=== PATIENT | female | born 1965 | race Caucasian/White ===

== ENCOUNTER 2022-02-23 13:45 | Emergency (ER) | payer OTHER, SELFPAY ==
--- NOTE | ~2022-02-23 | CT_ITS ---
EXAMINATION: CT CERVICAL SPINE WITHOUT CONTRAST CLINICAL INFORMATION: Pain. No trauma. Pain radiating down left upper extremity COMPARISON: None TECHNIQUE: Axial images obtained through cervical spine. Coronal and sagittal reformatted images are performed at CT scanner This CT examination was performed using dose optimization techniques as appropriate, variously including the following: *Automated exposure control *Adjustment of mA and/or kV according to patient size (this includes techniques or standardized protocols for targeted exams where dose is matched to indication/reason for exam; i.e. extremities or head) *Use of iterative reconstruction technique DLP: 454 mGy-cm FINDINGS: Status post anterior fusion C4-C5, C5-C6. Hardware intact. No fracture. No subluxation. No bone destruction. There is degenerative spondylosis of cervical spine. Mild disc height narrowing with anterior endplate spurs at C3-C4. Moderate to marked disc height narrowing and gentle endplate spurring at C6-C7. No foramina are open bilaterally. The facet joints are normal. No evidence of central canal stenosis or focal disc protrusion. CT/CT cervical spine wo IV con IMPRESSION: 1. No acute abnormality. 2. Status post anterior fusion C4-C6. 3. Degenerative spondylosis of cervical spine. Fleischner guidelines were followed.
[2022-02-23 13:56] VITALS: BP 147/94; PULSE 79; RESP 18; TEMP 36.6; O2SAT 99; BMI 27.8
--- OUTSIDE RECORDS SUMMARY | 2022-02-23 14:57 | XMS_ITS | Continuity of Care Document ---
:[address] [facility] re Address [address] [place] [address]- Care Team Providers Name Role Phone Chandra Barry MD Primary Care Physician [place] [facility] [place] 10/07/19 - 11/06/19 [facility] [address] [place] [address] [facility] Attending Physician: Chago Pandya Admitting Physician: Chago Pandya Referring Physician: AdmtrChago Allergies, Adverse Reactions, Alerts Substance Reaction Severity Status Zocor unknown Active Lipitor elevared lft's Active Adhesive Bandage kin peels and itchiness Active paper tape works well Latex skin irritation, itchiness Activ e Other Environmental Allergy TB testing material- site was baseba ll Active size and itchy statins muscle stiffness, potential liver issues Active oxyCODONE Itchy Active Immunizations Given and Recorded Vaccine Date Status Refusal Reason influenza virus vaccine, inactivated1 03/26/06 Given tetanus-diphtheria toxoids (Td) 04/23/02 Given 1Admin Note: 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 VIS GIVEN, NO EGG ALLERGY Medications amlodipine 5 mg oral tablet 1 tablet = 5 mg, By Mouth, Daily, 0 Refills, Maintenance, 10/14/14 13:34:07 Start Date: 10/14/14 Status: Orderedanastrozole 1 mg oral tablet 1 tablet = 1 mg, By Mouth, Daily, # 90 tablet, 3 Refills, Maintenance, 08/16/19 11:18:00 EDT, Tablet, [facility] #[id number], 154.94, cm, 08/03/19 14:35:00 EDT, Height, 62, kg, 08/03/19 14:35:00 EDT, Dry Weight Start Date: 08/16/19 Status: Orderedcalcium carbonate 600 mg oral tablet 1 tablet = 600 mg, By Mouth, Daily, # 60 tablet, 0 Refills, Maintenance, 09/15/19 12:26:00 EDT, Tablet Start Date: 09/15/19 Status: OrderedColace sodium 100 mg oral capsule 100 mg, 1, capsule, By Mouth, 2 times a day, PRN, # 14 capsule, Refills 0, Tot. Refills 0, Maintenance, for constipation, 07/20/19 15:19:00 EDT, Print Requisition Start Date: 07/20/19 Stop Date: 07/27/19 Status: OrderedLORazepam 1 mg oral tablet 1 tablet = 1 mg, By Mouth, 2 times a day, PRN as needed for anxiety, 0 Refills, Maintenance, 09/15/19 12:21:00 EDT, Tablet Start Date: 09/15/19 Status: Orderedmagnesium oxide 400 mg oral tablet 1 tablet = 400 mg, By Mouth, Daily, # 10 tablet, 0 Refills, Maintenance, 09/15/19 12:23:00 EDT, Tablet Start Date: 09/15/19 Stop Date: 09/25/19 Status: OrderedPARoxetine 30 mg oral tablet 1 tablet = 30 mg, By Mouth, Daily, # 90 tablet, 0 Refills, Maintenance, 09/15/19 12:22:00 EDT, Tablet Start Date: 09/15/19 Status: OrderedPravastatin = 20 mg, By Mouth, Daily at bedtime, 0 Refills, Maintenance, 07/14/19 8:39:00 EDT Start Date: 07/14/19 Status: OrderedProbiotic Formula 1 capsule, By Mouth, Daily, 0 Refills, Maintenance, 09/15/19 12:26:00 EDT Start Date: 09/15/19 Status: OrderedVitamin D3 1000 intl units oral capsule 1 capsule = 1,000 International_Units, By Mouth, Daily, # 100 capsule, 0 Refills, Maintenance, 09/15/19 12:26:00 EDT, Capsule Start Date: 09/15/19 Status: Ordered Problem List Condition Effective Dates Status Health Status Informant Anxiety disorder(Confirmed) Active 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
--- OUTSIDE RECORDS SUMMARY | 2022-02-23 14:57 | XMS_ITS | Continuity of Care Document ---
:1965 Author Organization [facility] Address [address] [place] [address]- Care Team Providers Name Role Phone Chandra Barry MD Primary Care Physician [place] [facility] [place] 01/30/21 [facility] [address] [address]- Discharge Disposition: A-D/C Home Attending Physician: Gladys Chapman MD Admitting Physician: Gladys Chapman MD Referring Physician: Chandra Barry MD Allergies, Adverse Reactions, Alerts Substance Reaction Severity [...] tetanus-diphtheria toxoids (Td) 04/23/02 Given 1Admin Note: 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 VIS GIVEN, NO EGG ALLERGY Medications amlodipine 5 mg oral tablet 1 tablet = 5 mg, By Mouth, Daily, 0 Refills, Maintenance, 10/14/14 13:34:07 Start Date: 10/14/14 Status: OrderedDiflucan 150 mg oral tablet 1 tablet = 150 mg, By Mouth, Once, # 1 tablet, 0 Refills, Soft Stop, 01/20/20 16:35:00 EDT, Tablet, [facility] #[id number], 156, cm, 01/11/20 15:14:00 EDT, Height, 64.6, kg, 01/11/20 15:14:00 EDT,Dry Weight Start Date: 01/20/20 Status: Orderedexemestane 25 mg oral tablet 1 tablet, By Mouth, Daily, # 90 tablet, 0 Refills, Maintenance, 09/14/20 15:29:00 EDT, [facility] #[id number], 156, cm, 09/14/20 14:22:00 EDT, Height, 67.2, kg, 09/14/20 14:22:00 EDT, Dry Weight Start Date: 09/14/20 Status: Orderedexemestane 25 mg oral tablet See Instructions, TAKE 1 TABLET BY MOUTH DAILY, # 90 tablet, 3 Refills, 12/27/20 16:43:00 EDT, [facility] #[id number], 156, cm, 11/30/20 14:11:00 EDT, Height, 68.7, kg, 11/30/20 14:11:00 EDT, Dry Weight Start Date: 12/27/20 Status: OrderedLORazepam 1 mg oral tablet 1 tablet = 1 mg, By Mouth, 2 times a day, PRN as needed for anxiety, 0 Refills, Maintenance, 09/15/19 12:21:00 EDT, Tablet Start Date: 09/15/19 Status: OrderedPARoxetine 30 mg oral tablet 1 [...] 09/15/19 12:26:00 EDT Start Date: 09/15/19 Status: Ordered Problem List Condition Effective Dates Status Health Status Informant Anxiety disorder(Confirmed) Active 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 Hypercholesterolemia(Confirmed) Active PMS - Premenstrual syndrome(Confirmed) Active Smoker(Confirmed) Active Vital Signs Most recent to oldest [Reference Range]: 1 Height 156 cm (11/30/20 2:11 PM) Weight 68.7 kg (11/30/20 2:11 PM) Oxygen Saturation [94-100 %] 97 % (11/30/20 2:11 PM) Pulse Rate [55-90 bpm] 80 bpm (11/30/20 2:11 PM) Body Mass Index [18.5-24.99] 28.23 *H* (11/30/20 2:11 PM) Blood Pressure [90-138/55-84 mm Hg] 132/71 mm Hg (11/30/20 2:11 PM) Temperature [96.8-100.4 DegF] 97.1 DegF (11/30/20 2:11 PM) Blood pressure sites Arm, left (11/30/20 2:11 PM) Temperature Route Temporal (11/30/20 2:11 PM) Dry Weight 68.7 kg (11/30/20 2:11 PM) Weight Obtained Via Standing scale (11/30/20 2:11 PM) Dry Weight Obtained Via Standing scale (11/30/20 2:11 PM) Social History Social History Type Response Smoking Status Current every day smoker entered on: 10/25/14 Sex
--- OUTSIDE RECORDS SUMMARY | 2022-02-23 14:57 | XMS_ITS | Continuity of Care Document ---
:1965 Author Organization [facility] Address [address] [place] [id number]- Care Team Providers Name Role Phone Chandra Barry MD Primary Care Physician [place] [facility] [place] 07/19/20 - 08/25/[facility] [address] [place] [id number] Attending Physician: Clover Haley MD Admitting Physician: Clover Haley MD Referring Physician: Chandra Barry MD Allergies, Adverse Reactions, Alerts Substance Reaction Severity Status Zocor unknown Active Lipitor elevared lft's Active Adhesive Bandage kin peels and itchiness Active paper tape works well Latex skin irritation, itchiness Activ e Other Environmental Allergy TB testing material- site was baseba Active size and itchy statins muscle stiffness, potential liver issues Active oxyCODONE Itchy Active Immunizations Given and Recorded Vaccine Date Status Refusal Reason influenza virus vaccine, inactivated1 03/26/06 Given tetanus-diphtheria toxoids (Td) 04/23/02 Given 1Admin Note: 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 VIS GIVEN, NO EGG ALLERGY Medications amlodipine 5 mg oral tablet 1 tablet = 5 mg, By Mouth, Daily, 0 Refills, Maintenance, 10/14/14 13:34:07 Start Date: 10/14/14 Status: Orderedcalcium carbonate 600 mg oral tablet [...] Start Date: 07/20/19 Stop Date: 07/27/19 Status: OrderedDiflucan 150 mg oral tablet 1 tablet = 150 mg, By Mouth, Once, # 1 tablet, 0 Refills, Soft Stop, 01/20/20 16:35:00 EDT, Tablet, [facility] #[id number], 156, cm, 01/11/20 15:14:00 EDT, Height, 64.6, kg, 01/11/20 15:14:00 EDT,Dry Weight Start Date: 01/20/20 Status: OrderedLORazepam 1 mg oral tablet 1 [...] Start Date: 09/15/19 Stop Date: 09/25/19 Status: OrderedMobic 7.5 mg oral tablet 1 tablet = 7.5 mg, By Mouth, Every 12 hours, # 30 tablet, 0 Refills, Maintenance, 03/20/20 17:10:00 EST, Tablet, [facility] #[id number], 156, cm, 03/20/20 16:47:00 EST, Height, 65.6, kg, 03/20/20 16:47:00 EST, Dry Weight Start Date: 03/20/20 Status: OrderedMobic 7.5 mg oral tablet 1 tablet = 7.5 mg, By Mouth, 2 times a day, # 60 tablet, 0 Refills, Maintenance, 04/14/20 10:56:00 EST, Tablet, [facility] #[id number], Partial fill upon patient request if the prescription is fora schedule II opioid drug., 156, cm, 03/20/20 16:... Start Date: 04/14/20 Status: OrderedPARoxetine 30 mg oral tablet 1 [...] 09/15/19 12:26:00 EDT Start Date: 09/15/19 Status: Orderedtamoxifen 20 mg oral tablet 1 tablet = 20 mg, By Mouth, Daily, # 30 tablet, 5 Refills, Maintenance, 08/11/20 16:38:00 EDT, Tablet, [facility] #[id number], Partial fill upon patient request if the prescription is for a schedule II opioid drug., 156, cm, 06/01/20 14:55:00 EST... 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
--- OUTSIDE RECORDS SUMMARY | 2022-02-23 14:57 | XMS_ITS | Continuity of Care Document ---
:1965 Author Organization [facility] Address [address] [place] [address]- Care Team Providers Name Role Phone Chandra Barry MD Primary Care Physician En[place] [facility] [place](s): 07/21/19 - 07/31/19 [facility] [address] [address] [facility] Attending Physician: Chago Pandya Admitting Physician: AdmChago woodard Referring Physician: AdmtrChago Allergies, Adverse Reactions, Alerts Substance Reaction Severity Status Zocor unknown Active Lipitor elevared lft's Active Adhesive Bandage kin peels and itchiness Active paper tape works well Latex skin irritation, itchiness Activ e Other Environmental Allergy TB testing material- site was baseba ll Active size and itchy Percocet 5/325 Itchy Active statins muscle stiffness, potential liver issues Active oxyCODONE Itchy Active Immunizations Given and Recorded Vaccine Date Status Refusal Reason influenza virus vaccine, inactivated1 03/26/06 Given tetanus-diphtheria toxoids (Td) 04/23/02 Given 1Admin Note: 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 Refills 0, Maintenance, for constipation, 07/20/19 15:19:00 EDT, Print Requisition Start Date: 07/20/19 Stop Date: 07/27/19 Status: OrderedLorazepam = 0.5 mg, 2 times a day, PRN as needed for anxiety, 0 Refills, Maintenance, 07/16/19 16:16:00 EDT Start Date: 07/16/19 Status: OrderedMobic 7.5 mg oral tablet 1 tablet = 7.5 mg, By Mouth, Daily, # 30 tablet, 0 Refills, Maintenance, 07/29/19 16:55:00 EDT, Tablet, [facility] #[id number], 154.94, cm, 07/29/19 14:46:00 EDT, Height, 62.27, kg, 07/16/19 16:59:00 EDT, Dry Weight Start Date: 07/29/19 Status: OrderedParoxetine = 20 mg, By Mouth, Daily in AM, 0 Refills, Maintenance, 07/14/19 8:40:00 EDT Start Date: 07/14/19 Status: OrderedPravastatin = 20 mg, By Mouth, Daily at bedtime, 0 Refills, Maintenance, 07/14/19 8:39:00 EDT Start Date: 07/14/19 Status: Ordered Problem List Condition Effective Dates Status Health Status Informant Anxiety disorder(Confirmed) Active 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
--- OUTSIDE RECORDS SUMMARY | 2022-02-23 14:57 | XMS_ITS | Continuity of Care Document ---
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 VIS GIVEN, NO EGG ALLERGY Medications amlodipine 5 mg oral tablet 1 tablet = 5 mg, By Mouth, Daily, 0 Refills, Maintenance, 10/14/14 13:34:07 Start Date: 10/14/14 Status: OrderedDiflucan 150 mg oral tablet 1 tablet = 150 mg, By Mouth, Once, # 1 tablet, 0 Refills, Soft Stop, 01/20/20 16:35:00 EDT, Tablet, [facility] #[id number], 156, cm, 01/11/20 15:14:00 EDT, Height, 64.6, kg, 01/11/20 15:14:00 EDT,Dry Weight Start Date: 01/20/20 Status: Orderedexemestane 25 mg oral tablet 1 tablet, By Mouth, Daily, # 90 tablet, 0 Refills, Maintenance, 09/14/20 15:29:00 EDT, [facility] #[id number], 156, cm, 09/14/20 14:22:00 EDT, Height, 67.2, kg, 09/14/20 14:22:00 EDT, Dry Weight Start Date: 09/14/20 Status: Orderedexemestane 25 mg oral tablet See Instructions, TAKE 1 TABLET BY MOUTH DAILY, # 90 tablet, 3 Refills, 12/27/20 16:43:00 EDT, [facility] #[id number], 156, cm, 11/30/20 14:11:00 EDT, Height, 68.7, [...] Status Health Status Informant Anxiety disorder(Confirmed) Active 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
--- OUTSIDE RECORDS SUMMARY | 2022-02-23 14:57 | XMS_ITS | Continuity of Care Document ---
:1965 Author Organization [facility] Address [address], [address] [place] [address]- Care Team Providers Name Role Phone Jhonny SAGE, Chandra Rico Primary Care Physician Encounter 03/26/21 - 05/19/21 [facility] [address], [address] [place] [address]- Attending Physician: Oleksandr Sheriff MD Admitting Physician: Oleksandr Sheriff MD Referring Physician: Oleksandr Sheriff MD Allergies, Adverse Reactions, Alerts Substance Reaction Severity Status Zocor unknown Active oxyCODONE Itchy Active Lipitor elevared lft's Active Adhesive Bandage kin peels and itchiness Active paper tape works well Latex skin irritation, itchiness Activ e Other Environmental Allergy TB testing material- site was baseba ll Active size and itchy statins muscle stiffness, potential liver issues Active Immunizations Given and Recorded Vaccine Date Status Refusal Reason influenza virus vaccine, inactivated1 03/26/06 Given tetanus-diphtheria toxoids (Td) 04/23/02 Given 1Admin Note: 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 VIS GIVEN, NO EGG ALLERGY Medications amlodipine 5 mg oral tablet 1 tablet = 5 mg, By Mouth, Daily, 0 Refills, Maintenance, 10/14/14 13:34:07 Start Date: 10/14/14 Status: OrderedDiflucan 150 mg oral tablet 1 tablet = 150 mg, By Mouth, Once, # 1 tablet, 0 Refills, Soft Stop, 01/20/20 16:35:00 EDT, Tablet, [facility] #[id number], 156, cm, 01/11/20 15:14:00 EDT, Height, 64.6, kg, 01/11/20 15:14:00 EDT,Dry Weight Start Date: 01/20/20 Status: Orderedexemestane 25 mg oral tablet 1 tablet, By Mouth, Daily, # 90 tablet, 0 Refills, Maintenance, 09/14/20 15:29:00 EDT, [facility] #[id number], 156, cm, 09/14/20 14:22:00 EDT, Height, 67.2, kg, 09/14/20 14:22:00 EDT, Dry Weight Start Date: 09/14/20 Status: Orderedexemestane 25 mg oral tablet See Instructions, TAKE 1 TABLET BY MOUTH DAILY, # 90 tablet, 3 Refills, 12/27/20 16:43:00 EDT, [facility] #[id number], 156, cm, 11/30/20 14:11:00 EDT, Height, 68.7, [...] Status Health Status Informant Anxiety disorder(Confirmed) Active 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
--- OUTSIDE RECORDS SUMMARY | 2022-02-23 14:57 | XMS_ITS | Continuity of Care Document ---
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 VIS GIVEN, NO EGG ALLERGY Medications amlodipine 5 mg oral tablet 1 tablet = 5 mg, By Mouth, Daily, 0 Refills, Maintenance, 10/14/14 13:34:07 Start Date: 10/14/14 Status: OrderedDiflucan 150 mg oral tablet 1 tablet = 150 mg, By Mouth, Once, # 1 tablet, 0 Refills, Soft Stop, 01/20/20 16:35:00 EDT, Tablet, [facility] #[id number], 156, cm, 01/11/20 15:14:00 EDT, Height, 64.6, kg, 01/11/20 15:14:00 EDT,Dry Weight Start Date: 01/20/20 Status: Orderedexemestane 25 mg oral tablet 1 tablet, By Mouth, Daily, # 90 tablet, 0 Refills, Maintenance, 09/14/20 15:29:00 EDT, [facility] #[id number], 156, cm, 09/14/20 14:22:00 EDT, Height, 67.2, kg, 09/14/20 14:22:00 EDT, Dry Weight Start Date: 09/14/20 Status: Orderedexemestane 25 mg oral tablet See Instructions, TAKE 1 TABLET BY MOUTH DAILY, # 90 tablet, 3 Refills, 12/27/20 16:43:00 EDT, [facility] #[id number], 156, cm, 11/30/20 14:11:00 EDT, Height, 68.7, [...] Status Health Status Informant Anxiety disorder(Confirmed) Active 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
--- OUTSIDE RECORDS SUMMARY | 2022-02-23 14:57 | XMS_ITS | Continuity of Care Document ---
:1965 Author Organization [facility] Address [address], [address] [place] [address]- Care Team Providers Name Role Phone Jhonny SAGE, Chandra Rico Primary Care Physician Encounter 04/25/21 - 05/02/21 [facility] [address], [address] [place] [address]- Attending Physician: Oleksandr Sheriff MD Admitting Physician: Oleksandr Sheriff MD Referring Physician: Oleksandr Sheriff MD Allergies, Adverse Reactions, Alerts Substance Reaction Severity Status Zocor unknown Active Adhesive Bandage kin peels and itchiness Active paper tape works well Other Environmental Allergy TB testing material- site was baseba ll Active size and itchy oxyCODONE Itchy Active Lipitor elevared lft's Active Latex skin irritation, itchiness Activ e statins muscle stiffness, potential liver issues Active Immunizations Given and Recorded Vaccine Date Status Refusal Reason influenza virus vaccine, inactivated1 03/26/06 Given tetanus-diphtheria toxoids (Td) 04/23/02 Given 1Admin Note: 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 VIS GIVEN, NO EGG ALLERGY Medications amlodipine 5 mg oral tablet 1 tablet = 5 mg, By Mouth, Daily, 0 Refills, Maintenance, 10/14/14 13:34:07 Start Date: 10/14/14 Status: OrderedDiflucan 150 mg oral tablet 1 tablet = 150 mg, By Mouth, Once, # 1 tablet, 0 Refills, Soft Stop, 01/20/20 16:35:00 EDT, Tablet, [facility][id number], 156, cm, 01/11/20 15:14:00 EDT, Height, 64.6, kg, 01/11/20 15:14:00 EDT,Dry Weight Start Date: 01/20/20 Status: Orderedexemestane 25 mg oral tablet 1 tablet, By Mouth, Daily, # 90 tablet, 0 Refills, Maintenance, 09/14/20 15:29:00 EDT, [facility] #[id number], 156, cm, 09/14/20 14:22:00 EDT, Height, 67.2, kg, 09/14/20 14:22:00 EDT, Dry Weight Start Date: 09/14/20 Status: Orderedexemestane 25 mg oral tablet See Instructions, TAKE 1 TABLET BY MOUTH DAILY, # 90 tablet, 3 Refills, 12/27/20 16:43:00 EDT, [facility] #[id number], 156, cm, 11/30/20 14:11:00 EDT, Height, 68.7, [...] Status Health Status Informant Anxiety disorder(Confirmed) Active 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
--- OUTSIDE RECORDS SUMMARY | 2022-02-23 14:57 | XMS_ITS | Continuity of Care Document ---
:1965 Author Organization [facility] [place] [address], [address] [place] [address]- Care Team Providers Name Role Phone Jhonny SAGE, Chandra Rico Primary Care Physician Encounter 08/30/21 - 09/06/21 [facility] [address], [address] [place] [address]- Attending Physician: Gladys Chapman MD Admitting Physician: Gladys Chapman MD Referring Physician: Gladys Chapman MD Allergies, Adverse Reactions, Alerts Substance Reaction Severity Status Zocor unknown Active Adhesive Bandage kin peels and itchiness Active paper tape works well oxyCODONE Itchy Active Lipitor elevared lft's Active Latex skin irritation, itchiness Activ e Other Environmental Allergy TB testing material- site was baseba ll Active size and itchy statins muscle stiffness, potential liver issues Active Immunizations Given and Recorded Vaccine Date Status Refusal Reason influenza virus vaccine, inactivated1 03/26/06 Given tetanus-diphtheria toxoids (Td) 04/23/02 Given 1Admin Note: 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: SANOFI 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 VIS GIVEN, NO EGG ALLERGY Medications amlodipine 5 mg oral tablet 1 tablet = 5 mg, By Mouth, Daily, 0 Refills, Maintenance, 10/14/14 13:34:07 Start Date: 10/14/14 Status: OrderedDiflucan 150 mg oral tablet 1 tablet = 150 mg, By Mouth, Once, # 1 tablet, 0 Refills, Soft Stop, 01/20/20 16:35:00 EDT, Tablet, [facility] #[id number], 156, cm, 01/11/20 15:14:00 EDT, Height, 64.6, kg, 01/11/20 15:14:00 EDT,Dry Weight Start Date: 01/20/20 Status: Orderedexemestane 25 mg oral tablet 1 tablet, By Mouth, Daily, # 90 tablet, 0 Refills, Maintenance, 09/14/20 15:29:00 EDT, [facility] #[id number], 156, cm, 09/14/20 14:22:00 EDT, Height, 67.2, kg, 09/14/20 14:22:00 EDT, Dry Weight Start Date: 09/14/20 Status: Orderedexemestane 25 mg oral tablet See Instructions, TAKE 1 TABLET BY MOUTH DAILY, # 90 tablet, 3 Refills, 12/27/20 16:43:00 EDT, [facility] #[id number], 156, cm, 11/30/20 14:11:00 EDT, Height, 68.7, [...] Status Health Status Informant Anxiety disorder(Confirmed) Active 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
--- OUTSIDE RECORDS SUMMARY | 2022-02-23 14:57 | XMS_ITS | Continuity of Care Document ---
:1965 Author Organization [facility] Address [address] [place] [address]- Care Team Providers Name Role Phone Chandra Barry MD Primary Care Physician [place] [facility] [place](s): 05/29/20 - 06/28/20 [facility] [address] [address]- Allergies, Adverse Reactions, Alerts Substance Reaction Severity Status Zocor unknown Active Lipitor elevared lft's Active Adhesive Bandage kin peels and itchiness Active paper tape works well Latex skin irritation, itchiness Activ e Other Environmental Allergy TB testing material- site was [facility] Active size and itchy statins muscle stiffness, potential liver issues Active oxyCODONE Itchy Active Immunizations Given and Recorded Vaccine Date Status Refusal Reason influenza virus vaccine, inactivated1 03/26/06 Given tetanus-diphtheria toxoids (Td) 04/23/02 Given 1Admin Note: 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: SANOFI PASTEUR VIS GIVEN, NO EGG ALLERGY [...] Refills, Soft Stop, 01/20/20 16:35:00 EDT, Tablet, [facility] #[id number], 156, cm, 01/11/20 15:14:00 EDT, Height, 64.6, [...] 0 Refills, Maintenance, 03/20/20 17:10:00 EST, Tablet, [facility] #[id number], 156, cm, 03/20/20 16:47:00 EST, Height, 65.6, kg, 03/20/20 16:47:00 EST, Dry Weight Start Date: 03/20/20 Status: OrderedMobic 7.5 mg oral tablet 1 tablet = 7.5 mg, By Mouth, 2 times a day, # 60 tablet, 0 Refills, Maintenance, 04/14/20 10:56:00 EST, Tablet, [facility] #[id number], Partial fill upon patient request if the [...] mg, By Mouth, Daily, # 30 tablet, 1 Refills, Maintenance, 06/22/20 14:20:00 EST, Tablet, [facility] #[id number], Partial fill upon patient request if the prescription is for a schedule II opioid drug., 156, cm, 06/01/20 14:55:00 EST... 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
--- OUTSIDE RECORDS SUMMARY | 2022-02-23 14:57 | XMS_ITS | Continuity of Care Document ---
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 #[id number], 156, cm, 01/11/20 15:14:00 EDT, Height, 64.6, kg, 01/11/20 15:14:00 EDT,Dry Weight Start Date: 01/20/20 Status: Orderedexemestane 25 mg oral tablet 1 tablet, By Mouth, Daily, # 90 tablet, 0 Refills, Maintenance, 09/14/20 15:29:00 EDT, [facility] #[id number], 156, cm, 09/14/20 14:22:00 EDT, Height, 67.2, kg, 09/14/20 14:22:00 EDT, Dry Weight Start Date: 09/14/20 Status: Orderedexemestane 25 mg oral tablet See Instructions, TAKE 1 TABLET BY MOUTH DAILY, # 90 tablet, 3 Refills, 12/27/20 16:43:00 EDT, [facility] #[id number], 156, cm, 11/30/20 14:11:00 EDT, Height, 68.7, [...] Status Health Status Informant Anxiety disorder(Confirmed) Active 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
--- OUTSIDE RECORDS SUMMARY | 2022-02-23 14:57 | XMS_ITS | Continuity of Care Document ---
:1965 Author Organization [facility] Address [address] [place] [address]- Care Team Providers Name Role Phone Chandra Barry MD Primary Care Physician Encounter 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: SANOFI PASTEUR VIS GIVEN, NO EGG ALLERGY Medications amlodipine 5 mg oral tablet 1 tablet = 5 mg, By Mouth, Daily, 0 Refills, Maintenance, 10/14/14 13:34:07 Start Date: 10/14/14 Status: OrderedDiflucan 150 mg oral tablet 1 tablet = 150 mg, By Mouth, Once, # 1 tablet, 0 Refills, Soft Stop, 01/20/20 16:35:00 EDT, Tablet, [facility] #[id number], 156, cm, 01/11/20 15:14:00 EDT, Height, 64.6, kg, 01/11/20 15:14:00 EDT,Dry Weight Start Date: 01/20/20 Status: Orderedexemestane 25 mg oral tablet 1 tablet, By Mouth, Daily, # 90 tablet, 0 Refills, Maintenance, 09/14/20 15:29:00 EDT, [facility] #[id number], 156, cm, 09/14/20 14:22:00 EDT, Height, 67.2, kg, 09/14/20 14:22:00 EDT, Dry Weight Start Date: 09/14/20 Status: Orderedexemestane 25 mg oral tablet See Instructions, TAKE 1 TABLET BY MOUTH DAILY, # 90 tablet, 3 Refills, 12/27/20 16:43:00 EDT, [facility] #[id number], 156, cm, 11/30/20 14:11:00 EDT, Height, 68.7, [...] Status Health Status Informant Anxiety disorder(Confirmed) Active 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 Hypercholesterolemia(Confirmed) Active PMS - Premenstrual syndrome(Confirmed) Active Smoker(Confirmed) Active Vital Signs Most recent to oldest [Reference Range]: 1 Height 156 cm (03/05/21 3:31 PM) Weight 66.1 kg (03/05/21 3:31 PM) Pulse Rate [55-90 bpm] 74 bpm (03/05/21 3:31 PM) Body Mass Index [18.5-24.99] 27.16 *H* (03/05/21 3:31 PM) Blood Pressure [90-138/55-84 mm Hg] 146/72 mm Hg *H* (03/05/21 3:31 PM) Temperature [96.8-100.4 DegF] 97.1 DegF (03/05/21 3:31 PM) Blood pressure sites Arm, left (03/05/21 3:31 PM) Temperature Route Temporal (03/05/21 3:31 PM) Dry Weight 66.1 kg (03/05/21 3:31 PM) Weight Obtained Via Standing scale (03/05/21 3:31 PM) Dry Weight Obtained Via Standing scale (03/05/21 3:31 PM) Social History Social History Type Response Smoking Status Current every day smoker entered on: 10/25/14 Sex
--- OUTSIDE RECORDS SUMMARY | 2022-02-23 14:57 | XMS_ITS | Continuity of Care Document ---
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: SANOFI PASTEUR VIS GIVEN, NO EGG ALLERGY Medications amlodipine 5 mg oral tablet 1 tablet = 5 mg, By Mouth, Daily, 0 Refills, Maintenance, 10/14/14 13:34:07 Start Date: 10/14/14 Status: Orderedanastrozole 1 mg oral tablet 1 tablet = 1 mg, By Mouth, Daily, # 90 tablet, 3 Refills, Maintenance, 08/16/19 11:18:00 EDT, Tablet, [facility] #[id number], 154.94, cm, 08/03/19 14:35:00 EDT, Height, 62, [...] Status Health Status Informant Anxiety disorder(Confirmed) Active 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
--- OUTSIDE RECORDS SUMMARY | 2022-02-23 14:57 | XMS_ITS | Continuity of Care Document ---
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: SANOFI PASTEUR VIS GIVEN, NO EGG ALLERGY [...] Refills, Soft Stop, 01/20/20 16:35:00 EDT, Tablet, [facility] #[id number], 156, cm, 01/11/20 15:14:00 EDT, Height, 64.6, [...] 0 Refills, Maintenance, 03/20/20 17:10:00 EST, Tablet, [facility] #[id number], 156, cm, 03/20/20 16:47:00 EST, Height, 65.6, kg, 03/20/20 16:47:00 EST, Dry Weight Start Date: 03/20/20 Status: OrderedMobic 7.5 mg oral tablet 1 tablet = 7.5 mg, By Mouth, 2 times a day, # 60 tablet, 0 Refills, Maintenance, 04/14/20 10:56:00 EST, Tablet, [facility] #[id number], Partial fill upon patient request if the [...] 1 Refills, Maintenance, 06/22/20 14:20:00 EST, Tablet, [facility] #[id number], Partial fill upon patient request if the [...] Status Health Status Informant Anxiety disorder(Confirmed) Active 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
--- OUTSIDE RECORDS SUMMARY | 2022-02-23 14:57 | XMS_ITS | Continuity of Care Document ---
:1965 Author Organization [facility] [place] [address], [address] [place] [address]- Care Team Providers Name Role Phone Chandra Barry MD Primary Care Physician Encounter 06/23/19 - 06/30/19 [facility] [address], [address] [place] [address]- [facility] Attending Physician: Chandra Barry MD Admitting Physician: Chandra Barry MD Referring Physician: Chandra Barry MD Allergies, Adverse Reactions, Alerts Substance Reaction Severity Status Zocor Active Lipitor elevared lft's Active Adhesive Bandage Active Percocet 5/325 Itchy Active oxyCODONE Itchy Active Immunizations Given and Recorded Vaccine Date Status Refusal Reason influenza virus vaccine, inactivated1 03/26/06 Given tetanus-diphtheria toxoids (Td) 04/23/02 Given 1Admin Note: 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 VIS GIVEN, NO EGG ALLERGY Medications amlodipine 5 mg oral tablet 1 tablet = 5 mg, By Mouth, Daily, 0 Refills, Maintenance, 10/14/14 13:34:07 Start Date: 10/14/14 Status: OrderedCymbalta 30 mg oral enteric coated capsule 30, mg, 1, capsule, By Mouth, Daily at bedtime, 30 capsule, 6, 0, 6, 08/21/06 14:26:52, Print KEYONA Number, [id number], Constant Indicator Start Date: 08/21/06 Stop Date: 03/19/07 Status: OrderedFetzima 40 mg oral capsule, extended release 1 capsule = 40 mg, By Mouth, Daily, 0 Refills, Maintenance, 10/14/14 13:35:43 Start Date: 10/14/14 Status: Orderedibuprofen 800 mg oral tablet 800, mg, 1, tablet, By Mouth, 3 times a day, 30, tablet, 0, 0, 01/07/08 11:22:52, Print KEYONA Number, [id number], [id number], Constant Indicator Start Date: 01/07/08 Stop Date: 01/17/08 Status: Orderedmeclizine 25 mg oral tablet 1 tablet = 25 mg, By Mouth, 3 to 4 times a day, PRN dizziness, # 20 tablet, 0 Refills, Maintenance, 02/17/15 16:31:49, 1 tablet By Mouth 3 to 4 times a day,PRN:dizziness Start Date: 02/17/15 Status: Orderedoxybutynin 5 mg oral tablet 1 tablet = 5 mg, By Mouth, Daily, # 30 tablet, 0 Refills, Maintenance, 10/14/14 13:33:13, Tablet Start Date: 10/14/14 Status: Orderedtramadol 50 mg oral tablet = 50 mg, By Mouth, Every 6 hours, PRN Pain , Moderate, 0 Refills, Maintenance, 10/26/14 20:20:19, Tablet Start Date: 10/26/14 Status: OrderedZetia 10 mg oral tablet 1 tablet = 10 mg, By Mouth, Daily at bedtime, # 30 tablet, 0 Refills, Maintenance, 10/14/14 13:34:43, Tablet Start Date: 10/14/14 Status: Ordered Problem List Condition Effective Dates Status Health Status Informant Anxiety disorder(Confirmed) Active 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
--- OUTSIDE RECORDS SUMMARY | 2022-02-23 14:57 | XMS_ITS | Continuity of Care Document ---
:1965 Author Organization [facility] Address [address] [place] [address]- Care Team Providers Name Role Phone Chandra Barry MD Primary Care Physician Encounter [facility] [place] Date(s): 09/14/20 - 10/14/20 [facility] [address] [place] [address]- Attending Physician: Chago Pandya Admitting Physician: AdmtrChago Referring Physician: Admtr, Ar8 Allergies, Adverse Reactions, Alerts Substance Reaction Severity Status Zocor unknown Active Lipitor elevared lft's Active Adhesive Bandage kin peels and itchiness Active paper tape works well Other Environmental Allergy TB testing material- site was baseba ll Active size and itchy statins muscle stiffness, potential liver issues Active oxyCODONE Itchy Active Latex skin irritation, itchiness Activ e Immunizations Given and Recorded Vaccine Date Status Refusal Reason influenza virus vaccine, inactivated1 03/26/06 Given tetanus-diphtheria toxoids (Td) 04/23/02 Given 1Admin Note: 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 VIS GIVEN, NO EGG ALLERGY Medications amlodipine 5 mg oral tablet 1 tablet = 5 mg, By Mouth, Daily, 0 Refills, Maintenance, 10/14/14 13:34:07 Start Date: 10/14/14 Status: OrderedDiflucan 150 mg oral tablet 1 tablet = 150 mg, By Mouth, Once, # 1 tablet, 0 Refills, Soft Stop, 01/20/20 16:35:00 EDT, Tablet, [facility] #[id number], 156, cm, 01/11/20 15:14:00 EDT, Height, 64.6, kg, 01/11/20 15:14:00 EDT,Dry Weight Start Date: 01/20/20 Status: Orderedexemestane 25 mg oral tablet 1 tablet, By Mouth, Daily, # 90 tablet, 0 Refills, Maintenance, 09/14/20 15:29:00 EDT, [facility][id number], 156, cm, 09/14/20 14:22:00 EDT, Height, 67.2, kg, 09/14/20 14:22:00 EDT, Dry Weight Start Date: 09/14/20 Status: OrderedLORazepam 1 mg oral tablet 1 [...] Status Health Status Informant Anxiety disorder(Confirmed) Active 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
--- OUTSIDE RECORDS SUMMARY | 2022-02-23 14:57 | XMS_ITS | Continuity of Care Document ---
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: SANOFI PASTEUR VIS GIVEN, NO EGG ALLERGY Medications amlodipine 5 mg oral tablet 1 tablet = 5 mg, By Mouth, Daily, 0 Refills, Maintenance, 10/14/14 13:34:07 Start Date: 10/14/14 Status: OrderedDiflucan 150 mg oral tablet 1 tablet = 150 mg, By Mouth, Once, # 1 tablet, 0 Refills, Soft Stop, 01/20/20 16:35:00 EDT, Tablet, [facility] #[id number], 156, cm, 01/11/20 15:14:00 EDT, Height, 64.6, kg, 01/11/20 15:14:00 EDT,Dry Weight Start Date: 01/20/20 Status: Orderedexemestane 25 mg oral tablet 1 tablet, By Mouth, Daily, # 90 tablet, 0 Refills, Maintenance, 09/14/20 15:29:00 EDT, [facility] #[id number], 156, cm, 09/14/20 14:22:00 EDT, Height, 67.2, kg, 09/14/20 14:22:00 EDT, Dry Weight Start Date: 09/14/20 Status: Orderedexemestane 25 mg oral tablet See Instructions, TAKE 1 TABLET BY MOUTH DAILY, # 90 tablet, 3 Refills, 12/27/20 16:43:00 EDT, [facility] #[id number], 156, cm, 11/30/20 14:11:00 EDT, Height, 68.7, [...] Status Health Status Informant Anxiety disorder(Confirmed) Active 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
--- OUTSIDE RECORDS SUMMARY | 2022-02-23 14:57 | XMS_ITS | Continuity of Care Document ---
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 VIS GIVEN, NO EGG ALLERGY Medications amlodipine 5 mg oral tablet 1 tablet = 5 mg, By Mouth, Daily, 0 Refills, Maintenance, 10/14/14 13:34:07 Start Date: 10/14/14 Status: OrderedDiflucan 150 mg oral tablet 1 tablet = 150 mg, By Mouth, Once, # 1 tablet, 0 Refills, Soft Stop, 01/20/20 16:35:00 EDT, Tablet, [facility] #[id number], 156, cm, 01/11/20 15:14:00 EDT, Height, 64.6, kg, 01/11/20 15:14:00 EDT,Dry Weight Start Date: 01/20/20 Status: Orderedexemestane 25 mg oral tablet 1 tablet, By Mouth, Daily, # 90 tablet, 0 Refills, Maintenance, 09/14/20 15:29:00 EDT, [facility] #[id number], 156, cm, 09/14/20 14:22:00 EDT, Height, 67.2, kg, 09/14/20 14:22:00 EDT, Dry Weight Start Date: 09/14/20 Status: Orderedexemestane 25 mg oral tablet See Instructions, TAKE 1 TABLET BY MOUTH DAILY, # 90 tablet, 3 Refills, 12/27/20 16:43:00 EDT, [facility] #[id number], 156, cm, 11/30/20 14:11:00 EDT, Height, 68.7, [...] Status Health Status Informant Anxiety disorder(Confirmed) Active 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
--- OUTSIDE RECORDS SUMMARY | 2022-02-23 14:57 | XMS_ITS | Continuity of Care Document ---
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 Partial fill upon patient request i... 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 Hypercholesterolemia Confirmed Active PMS - Premenstrual Confirmed Active syndrome Smoker Confirmed Active Vital Signs Most recent to oldest [Reference Range]: 1 Height 156 cm (11/28/21 2:55 PM) Weight 65.8 kg (11/28/21 2:55 PM) Pulse Rate [55-90 bpm] 85 bpm (11/28/21 2:55 PM) Body Mass Index [18.5-24.99] 27.04 *H* (11/28/21 2:55 PM) Blood Pressure [90-138/55-84 mm Hg] 153/85 mm Hg *H* (11/28/21 2:55 PM) Blood pressure sites Arm, right (11/28/21 2:55 PM) Dry Weight 65.8 kg (11/28/21 2:55 PM) Weight Obtained Via Standing scale (11/28/21 2:55 PM) Dry Weight Obtained Via Standing scale (11/28/21 2:55 PM) Social History Social History Type Response Smoking Status Current every day smoker entered on: 10/25/14 Sex Patient Care team information PersonnelName: Chandra Barry MD Address: Address: [address] [place] [address], [address]
--- OUTSIDE RECORDS SUMMARY | 2022-02-23 14:57 | XMS_ITS | Continuity of Care Document ---
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 MANAGER: SANOFI PASTEUR VIS GIVEN, NO EGG [...] Refills, Soft Stop, 01/20/20 16:35:00 EDT, Tablet, [facility] #[id number], 156, cm, 01/11/20 15:14:00 EDT, Height, 64.6, kg, 01/11/20 15:14:00 EDT,Dry Weight Start Date: 01/20/20 Status: Orderedletrozole 2.5 mg oral tablet 1 tablet = 2.5 mg, By Mouth, Daily, # 90 tablet, 0 Refills, Maintenance, 03/03/20 12:35:00 EST, Tablet, [facility] #[id number], 156, cm, 01/11/20 15:14:00 EDT, Height, 64.6, kg, 01/11/20 15:14:00 EDT, Dry Weight Start Date: 03/03/20 Status: OrderedLORazepam 1 mg oral tablet 1 [...] 0 Refills, Maintenance, 03/20/20 17:10:00 EST, Tablet, [facility] #[id number], 156, cm, 03/20/20 16:47:00 EST, Height, 65.6, kg, 03/20/20 16:47:00 EST, Dry Weight Start Date: 03/20/20 Status: OrderedMobic 7.5 mg oral tablet 1 tablet = 7.5 mg, By Mouth, 2 times a day, # 60 tablet, 0 Refills, Maintenance, 04/14/20 10:56:00 EST, Tablet, [facility] #[id number], Partial fill upon patient request if the [...] Status Health Status Informant Anxiety disorder(Confirmed) Active 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
--- OUTSIDE RECORDS SUMMARY | 2022-02-23 14:57 | XMS_ITS | Continuity of Care Document ---
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 PASTEUR VIS GIVEN, NO EGG ALLERGY Medications amlodipine 5 mg oral tablet 1 tablet = 5 mg, By Mouth, Daily, 0 Refills, Maintenance, 10/14/14 13:34:07 Start Date: 10/14/14 Status: Orderedanastrozole 1 mg oral tablet 1 tablet = 1 mg, By Mouth, Daily, # 90 tablet, 3 Refills, Maintenance, 08/16/19 11:18:00 EDT, Tablet, [facility] #[id number], 154.94, cm, 08/03/19 14:35:00 EDT, Height, 62, [...] Status Health Status Informant Anxiety disorder(Confirmed) Active 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
--- OUTSIDE RECORDS SUMMARY | 2022-02-23 14:57 | XMS_ITS | Continuity of Care Document ---
:1965 Author Organization [facility] Address [address] [place] [address]- Care Team Providers Name Role Phone Chandra Barry MD Primary Care Physician [facility]counter [facility] Date(s): 01/12/20 - 09/10/[address] [address] Attending Physician: Rosa Wilkinson MD Admitting Physician: [...] tetanus-diphtheria toxoids (Td) 04/23/02 Given 1Admin Note: WELDER TECH: SANOFI PASTEUR VIS GIVEN, NO EGG ALLERGY [...] Refills, Soft Stop, 01/20/20 16:35:00 EDT, Tablet, [facility] #[id number], 156, cm, 01/11/20 15:14:00 EDT, Height, 64.6, [...] 0 Refills, Maintenance, 03/20/20 17:10:00 EST, Tablet, [facility] #[id number], 156, cm, 03/20/20 16:47:00 EST, Height, 65.6, kg, 03/20/20 16:47:00 EST, Dry Weight Start Date: 03/20/20 Status: OrderedMobic 7.5 mg oral tablet 1 tablet = 7.5 mg, By Mouth, 2 times a day, # 60 tablet, 0 Refills, Maintenance, 04/14/20 10:56:00 EST, Tablet, [facility] #[id number], Partial fill upon patient request if the [...] 5 Refills, Maintenance, 08/11/20 16:38:00 EDT, Tablet, [facility] #[id number], Partial fill upon patient request if the [...] Status Health Status Informant Anxiety disorder(Confirmed) Active 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
--- OUTSIDE RECORDS SUMMARY | 2022-02-23 14:57 | XMS_ITS | Continuity of Care Document ---
:1965 Author Organization [facility] Address [address] 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 LENS GRINDER: SANOFI PASTEUR VIS GIVEN, NO EGG ALLERGY Medications acetaminophen-hydrocodone 300 mg-5 mg oral tablet 1 tablet, By Mouth, Every 6 hours, PRN as needed for pain, for 3 days, # 10 tablet, 0 Refills, Acute07/23/19 15:25:00 EDT, 07/20/19 15:25:00 EDT, Tablet, Partial fill upon patient request Start Date: 07/20/19 Stop Date: 07/23/19 Status: Orderedamlodipine 5 mg oral tablet 1 tablet = 5 mg, By Mouth, Daily, 0 Refills, Maintenance, 10/14/14 13:34:07 Start Date: 6/19/15 Status: OrderedColace sodium 100 mg oral capsule [...] 07/16/19 16:16:00 EDT Start Date: 07/16/19 Status: OrderedoxyCODONE 5 mg oral tablet 5 mg, 1, tablet, By Mouth, Every 6 hours, PRN, # 10 tablet, Refills 0, Tot. Refills 0, Acute 07/27/19 17:10:00 EDT, as needed for pain, 07/20/19 17:09:00 EDT, Route to Pharmacy Electronically, [facility][id number], Partial fill upon patient req... 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
--- OUTSIDE RECORDS SUMMARY | 2022-02-23 14:57 | XMS_ITS | Continuity of Care Document ---
:1965 Author Organization [facility] Address [address] [place] [address]- Care Team Providers Name Role Phone Chandra Barry MD Primary Care Physician Encounter [facility] Date(s): 07/14/19 - 08/18/[address] [address]- [facility] Attending Physician: Cris Bonds DO Allergies, Adverse Reactions, Alerts Substance Reaction Severity [...] tetanus-diphtheria toxoids (Td) 04/23/02 Given 1Admin Note: POLLUTION CONTROL ENGINEER: SANOFI PASTEUR VIS GIVEN, NO EGG ALLERGY Medications amlodipine 5 mg oral tablet 1 tablet = 5 mg, By Mouth, Daily, 0 Refills, Maintenance, 10/14/14 13:34:07 Start Date: 10/14/14 Status: Orderedanastrozole 1 mg oral tablet 1 tablet = 1 mg, By Mouth, Daily, # 90 tablet, 3 Refills, Maintenance, 08/16/19 11:18:00 EDT, Tablet, [facility] #[id number], 154.94, cm, 08/03/19 14:35:00 EDT, Height, 62, kg, 08/03/19 14:35:00 EDT, Dry Weight Start Date: 08/16/19 Status: OrderedColace sodium 100 mg oral capsule [...] 0 Refills, Maintenance, 07/29/19 16:55:00 EDT, Tablet, [facility] #[id number], 154.94, cm, 07/29/19 14:46:00 EDT, Height, 62.27, [...] Status Health Status Informant Anxiety disorder(Confirmed) Active 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
--- OUTSIDE RECORDS SUMMARY | 2022-02-23 14:57 | XMS_ITS | Continuity of Care Document ---
:1965 Author Organization [facility] Address [address] [place] [address]- Care Team Providers Name Role Phone Chandra Barry MD Primary Care Physician Encounter [facility] Date(s): 08/11/19 - 11/03/19 [facility] [address] [place] [address] Attending Physician: Cris Bonds DO Admitting Physician: [...] tetanus-diphtheria toxoids (Td) 04/23/02 Given 1Admin Note: PRODUCTION QUALITY ANALYST: SANOFI PASTEUR VIS GIVEN, NO EGG ALLERGY Medications amlodipine 5 mg oral tablet 1 tablet = 5 mg, By Mouth, Daily, 0 Refills, Maintenance, 10/14/14 13:34:07 Start Date: 10/14/14 Status: Orderedanastrozole 1 mg oral tablet 1 tablet = 1 mg, By Mouth, Daily, # 90 tablet, 3 Refills, Maintenance, 08/16/19 11:18:00 EDT, Tablet, [facility] #[id number], 154.94, cm, 08/03/19 14:35:00 EDT, Height, 62, [...] Status Health Status Informant Anxiety disorder(Confirmed) Active 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
--- OUTSIDE RECORDS SUMMARY | 2022-02-23 14:57 | XMS_ITS | Continuity of Care Document ---
:1965 Author Organization [facility] Address [address] [place] [address]- Care Team Providers Name Role Phone Chandra Barry MD Primary Care Physician Encounter [facility] Date(s): 03/05/21 - 04/04/21 [facility] [address] [address] Allergies, Adverse Reactions, Alerts Substance Reaction Severity Status Zocor unknown Active Other Environmental Allergy TB testing material- site was baseba ll Active size and itchy oxyCODONE Itchy Active Lipitor elevared lft's Active Adhesive Bandage kin peels and itchiness Active paper tape works well Latex skin irritation, itchiness Activ e statins muscle stiffness, potential liver issues Active Immunizations Given and Recorded Vaccine Date Status Refusal Reason influenza virus vaccine, inactivated1 03/26/06 Given tetanus-diphtheria toxoids (Td) 04/23/02 Given 1Admin Note: 411 DIRECTORY ASSISTANCE OPERATOR: SANOFI PASTEUR VIS GIVEN, NO EGG ALLERGY Medications amlodipine 5 mg oral tablet 1 tablet = 5 mg, By Mouth, Daily, 0 Refills, Maintenance, 10/14/14 13:34:07 Start Date: 10/14/14 Status: OrderedDiflucan 150 mg oral tablet 1 tablet = 150 mg, By Mouth, Once, # 1 tablet, 0 Refills, Soft Stop, 01/20/20 16:35:00 EDT, Tablet, [facility] #[id number], 156, cm, 01/11/20 15:14:00 EDT, Height, 64.6, kg, 01/11/20 15:14:00 EDT,Dry Weight Start Date: 01/20/20 Status: Orderedexemestane 25 mg oral tablet 1 tablet, By Mouth, Daily, # 90 tablet, 0 Refills, Maintenance, 09/14/20 15:29:00 EDT, [facility] #[id number], 156, cm, 09/14/20 14:22:00 EDT, Height, 67.2, kg, 09/14/20 14:22:00 EDT, Dry Weight Start Date: 09/14/20 Status: Orderedexemestane 25 mg oral tablet See Instructions, TAKE 1 TABLET BY MOUTH DAILY, # 90 tablet, 3 Refills, 12/27/20 16:43:00 EDT, [facility] #[id number], 156, cm, 11/30/20 14:11:00 EDT, Height, 68.7, [...] Status Health Status Informant Anxiety disorder(Confirmed) Active 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
--- OUTSIDE RECORDS SUMMARY | 2022-02-23 14:57 | XMS_ITS | Continuity of Care Document ---
:1965 Author Organization [facility] Address [address] [facility], [address] [place] [address]- Care Team Providers Name Role Phone Jhonny SAGE, Chandra Rico Primary Care Physician Encounter 08/13/21 - 08/20/21 [facility] [address], [address] [place] [address]- Attending Physician: Gladys Chapman MD Admitting Physician: [...] tetanus-diphtheria toxoids (Td) 04/23/02 Given 1Admin Note: HOME THEATER EXPERIENCE EXPERT: SANOFI PASTEUR VIS GIVEN, NO EGG ALLERGY Medications amlodipine 5 mg oral tablet 1 tablet = 5 mg, By Mouth, Daily, 0 Refills, Maintenance, 10/14/14 13:34:07 Start Date: 10/14/14 Status: OrderedDiflucan 150 mg oral tablet 1 tablet = 150 mg, By Mouth, Once, # 1 tablet, 0 Refills, Soft Stop, 01/20/20 16:35:00 EDT, Tablet, [facility] #[id number], 156, cm, 01/11/20 15:14:00 EDT, Height, 64.6, kg, 01/11/20 15:14:00 EDT,Dry Weight Start Date: 01/20/20 Status: Orderedexemestane 25 mg oral tablet 1 tablet, By Mouth, Daily, # 90 tablet, 0 Refills, Maintenance, 09/14/20 15:29:00 EDT, [facility] #[id number], 156, cm, 09/14/20 14:22:00 EDT, Height, 67.2, kg, 09/14/20 14:22:00 EDT, Dry Weight Start Date: 09/14/20 Status: Orderedexemestane 25 mg oral tablet See Instructions, TAKE 1 TABLET BY MOUTH DAILY, # 90 tablet, 3 Refills, 12/27/20 16:43:00 EDT, [facility] #[id number], 156, cm, 11/30/20 14:11:00 EDT, Height, 68.7, [...] Status Health Status Informant Anxiety disorder(Confirmed) Active 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
--- OUTSIDE RECORDS SUMMARY | 2022-02-23 14:57 | XMS_ITS | Continuity of Care Document ---
:1965 Author Organization [facility] Address [address] [place] [address]- Care Team Providers Name Role Phone Jhonny SAGE, Chandra Rico Primary Care Physician [place] [facility] [place]/14/21 - 09/15/[address] [address] Attending Physician: Gladys Chapman MD Admitting Physician: [...] tetanus-diphtheria toxoids (Td) 04/23/02 Given 1Admin Note: ICU CLERK: SANOFI PASTEUR VIS GIVEN, NO EGG ALLERGY Medications amlodipine 5 mg oral tablet 1 tablet = 5 mg, By Mouth, Daily, 0 Refills, Maintenance, 10/14/14 13:34:07 Start Date: 10/14/14 Status: OrderedDiflucan 150 mg oral tablet 1 tablet = 150 mg, By Mouth, Once, # 1 tablet, 0 Refills, Soft Stop, 01/20/20 16:35:00 EDT, Tablet, [facility] #[id number], 156, cm, 01/11/20 15:14:00 EDT, Height, 64.6, kg, 01/11/20 15:14:00 EDT,Dry Weight Start Date: 01/20/20 Status: Orderedexemestane 25 mg oral tablet 1 tablet, By Mouth, Daily, # 90 tablet, 0 Refills, Maintenance, 09/14/20 15:29:00 EDT, [facility] #[id number], 156, cm, 09/14/20 14:22:00 EDT, Height, 67.2, kg, 09/14/20 14:22:00 EDT, Dry Weight Start Date: 09/14/20 Status: Orderedexemestane 25 mg oral tablet See Instructions, TAKE 1 TABLET BY MOUTH DAILY, # 90 tablet, 3 Refills, 12/27/20 16:43:00 EDT, [facility] #[id number], 156, cm, 11/30/20 14:11:00 EDT, Height, 68.7, [...] Status Health Status Informant Anxiety disorder(Confirmed) Active 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
--- OUTSIDE RECORDS SUMMARY | 2022-02-23 14:57 | XMS_ITS | Continuity of Care Document ---
:1965 Author Organization [facility] Address [address] [place] [address]- Care Team Providers Name Role Phone Chandra Barry MD Primary Care Physician Encounter [facility] Date(s): 09/14/20 - 11/26/20 [facility] [address] [address]- Discharge Disposition: A-D/C Home Attending Physician: Rosa Wilkinson MD Admitting Physician: Rosa Wilkinson MD Referring Physician: Cris Bonds DO Allergies, Adverse Reactions, Alerts Substance Reaction Severity Status Zocor unknown Active Lipitor elevared lft's Active Adhesive Bandage kin peels and itchiness Active paper tape works well statins muscle stiffness, potential liver issues Active oxyCODONE Itchy Active Latex skin irritation, itchiness Activ e Other Environmental Allergy [facility] Active size and itchy Immunizations Given and Recorded Vaccine Date Status Refusal Reason influenza virus vaccine, inactivated1 03/26/06 Given tetanus-diphtheria toxoids (Td) 04/23/02 Given 1Admin Note: LIE DETECTOR OPERATOR: SANOFI PASTEUR VIS GIVEN, NO EGG ALLERGY Medications amlodipine 5 mg oral tablet 1 tablet = 5 mg, By Mouth, Daily, 0 Refills, Maintenance, 10/14/14 13:34:07 Start Date: 10/14/14 Status: OrderedDiflucan 150 mg oral tablet 1 tablet = 150 mg, By Mouth, Once, # 1 tablet, 0 Refills, Soft Stop, 01/20/20 16:35:00 EDT, Tablet, [facility] #[id number], 156, cm, 01/11/20 15:14:00 EDT, Height, 64.6, kg, 01/11/20 15:14:00 EDT,Dry Weight Start Date: 01/20/20 Status: Orderedexemestane 25 mg oral tablet 1 tablet, By Mouth, Daily, # 90 tablet, 0 Refills, Maintenance, 09/14/20 15:29:00 EDT, [facility][id number], 156, cm, 09/14/20 14:22:00 EDT, Height, 67.2, [...] Status Health Status Informant Anxiety disorder(Confirmed) Active 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 Hypercholesterolemia(Confirmed) Active PMS - Premenstrual syndrome(Confirmed) Active Smoker(Confirmed) Active Vital Signs Most recent to oldest [Reference Range]: 1 2 Height 156 cm 156 cm (09/26/20 3:24 PM) (09/14/20 2:22 PM) Weight 68.2 kg 67.2 kg (09/26/20 3:24 PM) (09/14/20 2:22 PM) Oxygen Saturation [94-100 %] 100 % 100 % (09/26/20 3:24 PM) (09/14/20 2:22 PM) Pulse Rate [55-90 bpm] 66 bpm 74 bpm (09/26/20 3:24 PM) (09/14/20 2:22 PM) Body Mass Index [18.5-24.99] 28.02 27.61 *H* *H* (09/26/20 3:24 PM) (09/14/20 2:22 PM) Blood Pressure [90-138/55-84 mm Hg] 155/77 mm Hg 141/ 75 mm Hg *H* *H* (09/26/20 3:24 PM) (09/14/20 2:22 PM) Respiratory Rate [16-30 br/min] 16 br/min (09/14/20 2:22 PM) Temperature [96.8-100.4 DegF] 97.6 DegF 97.9 DegF (09/26/20 3:24 PM) (09/14/20 2:22 PM) Mode of Delivery (Oxygen) Room air (09/14/20 2:22 PM) Blood pressure sites Arm, left Arm, left (09/26/20 3:24 PM) (09/14/20 2:22 PM) Temperature Route Temporal Temporal (09/26/20 3:24 PM) (09/14/20 2:22 PM) Dry Weight 68.2 kg 67.2 kg (09/26/20 3:24 PM) (09/14/20 2:22 PM) Weight Obtained Via Standing scale Standing scale (09/26/20 3:24 PM) (09/14/20 2:22 PM) Dry Weight Obtained Via Standing scale Standing scale (09/26/20 3:24 PM) (09/14/20 2:22 PM) Social History Social History Type Response Smoking Status Current every day smoker entered on: 10/25/14 Sex
--- OUTSIDE RECORDS SUMMARY | 2022-02-23 14:57 | XMS_ITS | Continuity of Care Document ---
:1965 Author Organization [facility] Address [address] [address]- Care Team Providers Name Role Phone Chandra Barry MD Primary Care Physician [place] [facility] 12/19/20 - 01/18/21 [facility] [address] [address]- Attending Physician: Chago Pandya Admitting Physician: AdmChago woodard Referring Physician: AdmtrChago Allergies, Adverse Reactions, Alerts Substance Reaction Severity Status Zocor unknown Active Other Environmental Allergy TB testing material- site was baseba ll Active size and itchy oxyCODONE Itchy Active statins muscle stiffness, potential liver issues Active Lipitor elevared lft's Active Adhesive Bandage kin peels and itchiness Active paper tape works well Latex skin irritation, itchiness Activ e Immunizations Given and Recorded Vaccine Date Status Refusal Reason influenza virus vaccine, inactivated1 03/26/06 Given tetanus-diphtheria toxoids (Td) 04/23/02 Given 1Admin Note: PASTING INSPECTOR: SANOFI PASTEUR VIS GIVEN, NO EGG ALLERGY Medications amlodipine 5 mg oral tablet 1 tablet = 5 mg, By Mouth, Daily, 0 Refills, Maintenance, 10/14/14 13:34:07 Start Date: 10/14/14 Status: OrderedDiflucan 150 mg oral tablet 1 tablet = 150 mg, By Mouth, Once, # 1 tablet, 0 Refills, Soft Stop, 01/20/20 16:35:00 EDT, Tablet, [facility] #[id number], 156, cm, 01/11/20 15:14:00 EDT, Height, 64.6, kg, 01/11/20 15:14:00 EDT,Dry Weight Start Date: 01/20/20 Status: Orderedexemestane 25 mg oral tablet 1 tablet, By Mouth, Daily, # 90 tablet, 0 Refills, Maintenance, 09/14/20 15:29:00 EDT, [facility] #[id number], 156, cm, 09/14/20 14:22:00 EDT, Height, 67.2, kg, 09/14/20 14:22:00 EDT, Dry Weight Start Date: 09/14/20 Status: Orderedexemestane 25 mg oral tablet See Instructions, TAKE 1 TABLET BY MOUTH DAILY, # 90 tablet, 3 Refills, 12/27/20 16:43:00 EDT, [facility] #[id number], 156, cm, 11/30/20 14:11:00 EDT, Height, 68.7, [...] Status Health Status Informant Anxiety disorder(Confirmed) Active 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
--- OUTSIDE RECORDS SUMMARY | 2022-02-23 14:57 | XMS_ITS | Continuity of Care Document ---
:1965 Author Organization [facility] Address [address] [place] [address]- Care Team Providers Name Role Phone Chandra Barry MD Primary Care Physician [place] [facility] [place] - 07/[place]/20 [facility] [address] [address]- Allergies, Adverse Reactions, Alerts Substance Reaction Severity Status Zocor unknown Active Lipitor elevared lft's Active Adhesive Bandage kin peels and itchiness Active paper tape works well Latex skin irritation, itchiness Activ e Other Environmental Allergy TB testing material- site was [facility] Active size and itchy statins muscle stiffness, potential liver issues Active oxyCODONE Itchy Active Immunizations Given and Recorded Vaccine Date Status Refusal Reason influenza virus vaccine, inactivated1 03/26/06 Given tetanus-diphtheria toxoids (Td) 04/23/02 Given 1Admin Note: PERIODICALS CLERK: SANOFI PASTEUR VIS GIVEN, NO EGG [...] Refills, Soft Stop, 01/20/20 16:35:00 EDT, Tablet, [facility] #[id number], 156, cm, 01/11/20 15:14:00 EDT, Height, 64.6, [...] 0 Refills, Maintenance, 03/20/20 17:10:00 EST, Tablet, [facility] #[id number], 156, cm, 03/20/20 16:47:00 EST, Height, 65.6, kg, 03/20/20 16:47:00 EST, Dry Weight Start Date: 03/20/20 Status: OrderedMobic 7.5 mg oral tablet 1 tablet = 7.5 mg, By Mouth, 2 times a day, # 60 tablet, 0 Refills, Maintenance, 04/14/20 10:56:00 EST, Tablet, [facility] #[id number], Partial fill upon patient request if the [...] 1 Refills, Maintenance, 06/22/20 14:20:00 EST, Tablet, [facility] #[id number], Partial fill upon patient request if the [...] Status Health Status Informant Anxiety disorder(Confirmed) Active 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
--- OUTSIDE RECORDS SUMMARY | 2022-02-23 14:57 | XMS_ITS | Continuity of Care Document ---
:1965 Author Organization [facility] [address], [address] [place] [address]- Care Team Providers Name Role Phone Chandra Barry MD Primary Care Physician Encounter 07/18/20 - 07/25/20 [facility] [address], [address] [place] [address]- Attending Physician: Rosa Wilkinson MD Admitting Physician: [...] tetanus-diphtheria toxoids (Td) 04/23/02 Given 1Admin Note: GRIZZLYMAN: SANOFI PASTEUR VIS GIVEN, NO EGG ALLERGY [...] Refills, Soft Stop, 01/20/20 16:35:00 EDT, Tablet, [facility][id number], 156, cm, 01/11/20 15:14:00 EDT, Height, 64.6, [...] 0 Refills, Maintenance, 03/20/20 17:10:00 EST, Tablet, [facility][id number], 156, cm, 03/20/20 16:47:00 EST, Height, 65.6, kg, 03/20/20 16:47:00 EST, Dry Weight Start Date: 03/20/20 Status: OrderedMobic 7.5 mg oral tablet 1 tablet = 7.5 mg, By Mouth, 2 times a day, # 60 tablet, 0 Refills, Maintenance, 04/14/20 10:56:00 EST, Tablet, [facility][id number], Partial fill upon patient request if the [...] 1 Refills, Maintenance, 06/22/20 14:20:00 EST, Tablet, [facility] #[id number], Partial fill upon patient request if the [...] Status Health Status Informant Anxiety disorder(Confirmed) Active 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
--- OUTSIDE RECORDS SUMMARY | 2022-02-23 14:57 | XMS_ITS | Continuity of Care Document ---
:[address] [facility] Address [address] [place] [address]- Care Team Providers Name Role Phone Chandra Barry MD Primary Care Physician En[place] [facility] [place] Date(s): 12/19/20 - 12/26/[address] [address]- Attending Physician: Chandra Barry MD Admitting Physician: Chandra Barry MD Referring Physician: Chandra Barry MD Allergies, Adverse Reactions, Alerts Substance Reaction Severity Status Zocor unknown Active Lipitor elevared lft's Active Adhesive Bandage kin peels and itchiness Active paper tape works well Latex skin irritation, itchiness Activ e Other Environmental Allergy TB testing material- site was [facility] Active size and itchy statins muscle stiffness, potential liver issues Active oxyCODONE Itchy Active Immunizations Given and Recorded Vaccine Date Status Refusal Reason influenza virus vaccine, inactivated1 03/26/06 Given tetanus-diphtheria toxoids (Td) 04/23/02 Given 1Admin Note: 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 SECRETARY: SANOFI PASTEUR VIS GIVEN, NO EGG ALLERGY Medications amlodipine 5 mg oral tablet 1 tablet = 5 mg, By Mouth, Daily, 0 Refills, Maintenance, 10/14/14 13:34:07 Start Date: 10/14/14 Status: OrderedDiflucan 150 mg oral tablet 1 tablet = 150 mg, By Mouth, Once, # 1 tablet, 0 Refills, Soft Stop, 01/20/20 16:35:00 EDT, Tablet, [facility] #[id number], 156, cm, 01/11/20 15:14:00 EDT, Height, 64.6, kg, 01/11/20 15:14:00 EDT,Dry Weight Start Date: 01/20/20 Status: Orderedexemestane 25 mg oral tablet 1 tablet, By Mouth, Daily, # 90 tablet, 0 Refills, Maintenance, 09/14/20 15:29:00 EDT, [facility][id number], 156, cm, 09/14/20 14:22:00 EDT, Height, 67.2, kg, 09/14/20 14:22:00 EDT, Dry Weight Start Date: 09/14/20 Status: Orderedexemestane 25 mg oral tablet See Instructions, TAKE 1 TABLET BY MOUTH DAILY, # 90 tablet, 3 Refills, [facility] #[id number],156, cm, 11/30/20 14:11:00 EDT, Height, 68.7, kg, 11/30/20 14:11:00 EDT, Dry Weight Start Date: 12/22/20 Status: OrderedLORazepam 1 mg oral tablet 1 [...] Status Health Status Informant Anxiety disorder(Confirmed) Active 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
--- OUTSIDE RECORDS SUMMARY | 2022-02-23 14:58 | XMS_ITS | Continuity of Care Document ---
:1965 Author Organization [facility] Address [address] [place] [address]- Care Team Providers Name Role Phone Chandra Barry MD Primary Care Physician Encounter [facility] [place] Date(s): 11/28/21 - 12/28/21 [facility] [address] [address] Allergies, Adverse Reactions, Alerts Substance Reaction Severity Status Zocor unknown Active Lipitor elevared lft's Active Adhesive Bandage kin peels and itchiness Active paper tape works well Latex skin irritation, itchiness Activ e Other Environmental Allergy TB testing material- site was [facility] Active size and itchy statins muscle stiffness, potential liver issues Active oxyCODONE Itchy Active Immunizations Given and Recorded Vaccine Date Status Refusal Reason influenza virus vaccine, inactivated1 03/26/06 Given tetanus-diphtheria toxoids (Td) 04/23/02 Given 1Admin Note: 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 Partial fill upon patient request i... 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
--- OUTSIDE RECORDS SUMMARY | 2022-02-23 14:58 | XMS_ITS | Continuity of Care Document ---
:1965 Author Organization [facility] Address [address] [facility] [address], [address] [place] [address]- Care Team Providers Name Role Phone Jhonny SAGE, Chandra Rico Primary Care Physician Encounter 12/20/21 - 12/27/21 [facility] [address], [address] [place] [address]- Attending Physician: Josefina Taylor NP Admitting Physician: Brandon LIRA, Josefina Referring Physician: Josefina Taylor NP Allergies, Adverse Reactions, Alerts Substance Reaction Severity Status Zocor unknown Active Lipitor elevared lft's Active oxyCODONE Itchy Active Adhesive Bandage kin peels and itchiness Active paper tape works well Latex skin irritation, itchiness Activ e Other Environmental Allergy TB testing material- site [facility] Active size and itchy statins muscle stiffness, potential liver issues Active Immunizations Given and Recorded Vaccine Date Status Refusal Reason influenza virus vaccine, inactivated1 03/26/06 Given tetanus-diphtheria toxoids (Td) 04/23/02 Given 1Admin Note: DRESSMAKER GARMENT FITTER: SANOFI PASTEUR VIS GIVEN, NO EGG ALLERGY [...] 3 Refills, Maintenance, 12/20/21 17:03:00 EDT, Tablet, [facility] #[id number], If insurance does not cover 90 day supply, please dispense 30 days with 11 refills. Partial fill upon patient request i... 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
--- OUTSIDE RECORDS SUMMARY | 2022-02-23 14:58 | XMS_ITS | Continuity of Care Document ---
:1965 Author Organization [facility] [place] [address] [facility] [facility] [address], [address] [place] [address]- Care Team Providers Name Role Phone Chandra Barry MD Primary Care Physician Encounter 07/09/19 - 07/16/19 [facility] [address], [address] [place] [address]- [facility] Attending Physician: Chandra Barry MD Admitting Physician: [...] tetanus-diphtheria toxoids (Td) 04/23/02 Given 1Admin Note: FISHERY DIVISION CHIEF: SANOFI PASTEUR VIS GIVEN, NO EGG ALLERGY Medications amlodipine 5 mg oral tablet 1 tablet = 5 mg, By Mouth, Daily, 0 Refills, Maintenance, 10/14/14 13:34:07 Start Date: 10/14/14 Status: OrderedLorazepam = 0.5 mg, 2 times a day, PRN as needed for anxiety, 0 Refills, Maintenance, 07/16/19 16:16:00 EDT Start Date: 07/16/19 Status: OrderedParoxetine = 20 mg, By Mouth, Daily in AM, 0 Refills, Maintenance, 07/14/19 8:40:00 EDT Start Date: 07/14/19 Status: OrderedPravastatin = 20 mg, By Mouth, Daily at bedtime, 0 Refills, Maintenance, 07/14/19 8:39:00 EDT Start Date: 07/14/19 Status: Ordered Problem List Condition Effective Dates Status Health Status Informant Anxiety disorder(Confirmed) Active 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
--- OUTSIDE RECORDS SUMMARY | 2022-02-23 14:58 | XMS_ITS | Continuity of Care Document ---
:1965 Author Organization [facility] Address [address] [place] [address] Drive [address] [place] [address]- Care Team Providers Name Role Phone Chandra Barry MD Primary Care Physician Encounter [facility] [place] Date(s): 01/11/22 - 01/18/[address] [place], [place] [address] Attending Physician: Hector Loya MD Referring Physician: Chandra Barry MD Allergies, [...] tetanus-diphtheria toxoids (Td) 04/23/02 Given 1Admin Note: AUTOMOBILE WRECKER: SANOFI PASTEUR VIS GIVEN, NO EGG ALLERGY [...] 3 Refills, Maintenance, 12/20/21 17:03:00 EDT, Tablet, [facility] #[id number], If insurance does not cover 90 day supply, please dispense 30 days with 11 refills. Partial fill upon patient request i... 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 Hypercholesterolemia(Confirmed) Active PMS - Premenstrual syndrome(Confirmed) Active Smoker(Confirmed) Active Vital Signs Most recent to oldest [Reference Range]: 1 Height 156 cm (01/11/22 3:25 PM) Weight 61.0 kg (01/11/22 3:25 PM) Pulse Rate [55-90 bpm] 69 bpm (01/11/22 3:25 PM) Body Mass Index [18.5-24.99] 25.07 *H* (01/11/22 3:25 PM) Blood Pressure [90-138/55-84 mm Hg] 127/56 mm Hg (01/11/22 3:25 PM) Respiratory Rate [16-30 br/min] 16 br/min (01/11/22 3:25 PM) Temperature [96.8-100.4 DegF] 97.3 DegF (01/11/22 3:25 PM) Blood pressure sites Arm, right (01/11/22 3:25 PM) Temperature Route Temporal (01/11/22 3:25 PM) Social History Social History Type Response Smoking Status Current every day smoker entered on: 10/25/14 Sex Care Team PersonnelName: Chandra Barry MD Address: [address] [place] [address]
--- OUTSIDE RECORDS SUMMARY | 2022-02-23 14:58 | XMS_ITS | Continuity of Care Document ---
:[address] [facility] Address [address] [place] [address]- Care Team Providers Name Role Phone Chandra Barry MD Primary Care Physician En[facility] [place] Date(s): 07/21/19 - 10/03/19 [facility] [address] [address] [facility] Discharge Disposition: A-D/C Home Attending Physician: Rosa Wilkinson MD Admitting Physician: Rosa Wilkinson MD Referring Physician: Cris Bonds DO Allergies, Adverse Reactions, Alerts Substance Reaction Severity Status Zocor unknown Active Lipitor elevared lft's Active Adhesive Bandage kin peels and itchiness Active paper tape works well Latex skin irritation, itchiness Activ e Other Environmental Allergy TB testing material- site was [facility] Active size and itchy Percocet 5/325 Itchy Active statins muscle stiffness, potential liver issues Active oxyCODONE Itchy Active Immunizations Given and Recorded Vaccine Date Status Refusal Reason influenza virus vaccine, inactivated1 03/26/06 Given tetanus-diphtheria toxoids (Td) 04/23/02 Given 1Admin Note: 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: SANOFI PASTEUR VIS GIVEN, NO EGG ALLERGY Medications amlodipine 5 mg oral tablet 1 tablet = 5 mg, By Mouth, Daily, 0 Refills, Maintenance, 10/14/14 13:34:07 Start Date: 10/14/14 Status: Orderedanastrozole 1 mg oral tablet 1 tablet = 1 mg, By Mouth, Daily, # 90 tablet, 3 Refills, Maintenance, 08/16/19 11:18:00 EDT, Tablet, [facility] #[id number], 154.94, cm, 08/03/19 14:35:00 EDT, Height, 62, [...] Status Health Status Informant Anxiety disorder(Confirmed) Active 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 Hypercholesterolemia(Confirmed) Active PMS - Premenstrual syndrome(Confirmed) Active Smoker(Confirmed) Active Vital Signs Most recent to oldest [Reference Range]: 1 2 Height 156 cm 154.94 cm (10/01/19 1:37 PM) (08/03/19 2:35 PM) Weight 62.9 kg 62.0 kg (10/01/19 1:37 PM) (08/03/19 2:35 PM) Oxygen Saturation [94-100 %] 98 % (10/01/19 1:37 PM) Pulse Rate [55-90 bpm] 75 bpm 87 bpm (10/01/19 1:37 PM) (08/03/19 2:35 PM) Body Mass Index [18.5-24.99] 25.85 25.83 *H* *H* (10/01/19 1:37 PM) (08/03/19 2:35 PM) Blood Pressure [90-138/55-84 mm Hg] 139/69 mm Hg 147/ 69 mm Hg *H* *H* (10/01/19 1:37 PM) (08/03/19 2:35 PM) Temperature [96.8-100.4 DegF] 97.6 DegF 97.6 DegF (10/01/19 1:37 PM) (08/03/19 2:35 PM) Mode of Delivery (Oxygen) Room air (10/01/19 1:37 PM) Blood pressure sites Arm, left Arm, right (10/01/19 1:37 PM) (08/03/19 2:35 PM) Temperature Route Temporal Temporal (10/01/19 1:37 PM) (08/03/19 2:35 PM) Dry Weight 62.9 kg 62.0 kg (10/01/19 1:37 PM) (08/03/19 2:35 PM) Weight Obtained Via Standing scale Standing scale (10/01/19 1:37 PM) (08/03/19 2:35 PM) Dry Weight Obtained Via Standing scale Standing scale (10/01/19 1:37 PM) (08/03/19 2:35 PM) Social History Social History Type Response Smoking Status Current every day smoker entered on: 10/25/14 Sex
--- OUTSIDE RECORDS SUMMARY | 2022-02-23 14:58 | XMS_ITS | Continuity of Care Document ---
:1965 Author Organization [facility] Address [address] [place] [address]- Care Team Providers Name Role Phone Chandra Barry MD Primary Care Physician Encounter [facility] Date(s): 07/26/20 - 08/25/20 [facility] [address] [place] [email or web address] Attending Physician: Chago Pandya Admitting Physician: Chago [...] tetanus-diphtheria toxoids (Td) 04/23/02 Given 1Admin Note: CATALOGUE LIBRARIAN: SANOFI PASTEUR VIS GIVEN, NO EGG ALLERGY [...] Refills, Soft Stop, 01/20/20 16:35:00 EDT, Tablet, [facility][id number], 156, cm, 01/11/20 15:14:00 EDT, Height, 64.6, [...] 0 Refills, Maintenance, 03/20/20 17:10:00 EST, Tablet, [facility][id number], 156, cm, 03/20/20 16:47:00 EST, Height, 65.6, kg, 03/20/20 16:47:00 EST, Dry Weight Start Date: 03/20/20 Status: OrderedMobic 7.5 mg oral tablet 1 tablet = 7.5 mg, By Mouth, 2 times a day, # 60 tablet, 0 Refills, Maintenance, 04/14/20 10:56:00 EST, Tablet, [facility][id number], Partial fill upon patient request if the [...] 5 Refills, Maintenance, 08/11/20 16:38:00 EDT, Tablet, [facility] #[id number], Partial fill upon patient request if the [...] Status Health Status Informant Anxiety disorder(Confirmed) Active 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
--- OUTSIDE RECORDS SUMMARY | 2022-02-23 14:58 | XMS_ITS | Continuity of Care Document ---
:1965 Author Organization [facility] Address [address] [place] [address] Drive [address] [place] [address]- Care Team Providers Name Role Phone Chandra Barry MD Primary Care Physician [place] [facility] [place] 12/11/21 - 02/20/[address] [place], [place] [address] Attending Physician: Chandra Barry MD Allergies, Adverse Reactions, [...] tetanus-diphtheria toxoids (Td) 04/23/02 Given 1Admin Note: APPLICATION DESIGNER: SANOFI PASTEUR VIS GIVEN, NO EGG ALLERGY [...] Mouth, Daily at bedtime, 0 Refills, Maintenance, 03/18/20 8:39:00 EDT Start Date: 07/14/19 Status: OrderedProbiotic Formula 1 capsule, By Mouth, Daily, 0 Refills, Maintenance, 09/15/19 12:26:00 EDT Start Date: 09/15/19 Status: Orderedtamoxifen 20 mg oral tablet 1 tablet = 20 mg, By Mouth, Daily, # 90 tablet, 3 Refills, Maintenance, 12/20/21 17:03:00 EDT, Tablet, [facility] #[id number], If insurance does not cover 90 day supply, please dispense 30 days with 11 refills. Partial fill upon patient request i... 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
--- OUTSIDE RECORDS SUMMARY | 2022-02-23 14:58 | XMS_ITS | Continuity of Care Document ---
:1965 Author Organization [facility] Address [address] [place] [address]- Care Team Providers Name Role Phone Chandra Barry MD Primary Care Physician [place] [facility] [place]28[place]21 - 12/28/21 [facility] [address] [address] Allergies, Adverse Reactions, Alerts Substance Reaction Severity Status Zocor unknown Active Lipitor elevared lft's Active Adhesive Bandage kin peels and itchiness Active paper tape works well Latex skin irritation, itchiness Activ e Other Environmental Allergy TB testing material- site was [facility] Active size and itchy statins muscle stiffness, potential liver issues Active oxyCODONE Itchy Active Immunizations Given and Recorded Vaccine Date Status Refusal Reason influenza virus vaccine, inactivated1 03/26/06 Given tetanus-diphtheria toxoids (Td) 04/23/02 Given 1Admin Note: 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 Partial fill upon patient request i... 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
--- OUTSIDE RECORDS SUMMARY | 2022-02-23 14:58 | XMS_ITS | Continuity of Care Document ---
:1965 Author Organization [facility] Address [address] [place] [address] Drive [address] [place] [address]- Care Team Providers Name Role Phone Chandra Barry MD Primary Care Physician Encounter [facility] Date(s): 01/11/22 - 02/10/[address] [place], [place] [address] Attending Physician: Chago Pandya Admitting Physician: AdmtrChago Referring Physician: [email or web address] Allergies, Adverse Reactions, Alerts Substance Reaction Severity Status Zocor unknown Active Lipitor elevared lft's Active Other Environmental Allergy TB testing material- site was [facility] Active size and itchy oxyCODONE Itchy Active Adhesive Bandage kin peels and itchiness Active paper tape works well Latex skin irritation, itchiness Activ e statins muscle stiffness, potential liver issues Active Immunizations Given and Recorded Vaccine Date Status Refusal Reason influenza virus vaccine, inactivated1 03/26/06 Given tetanus-diphtheria toxoids (Td) 04/23/02 Given 1Admin Note: DIRECTOR CLINICAL OPERATIONS: SANOFI PASTEUR VIS GIVEN, NO EGG ALLERGY [...] 3 Refills, Maintenance, 12/20/21 17:03:00 EDT, Tablet, [email or web address] #[id number], If insurance does not cover 90 day supply, please dispense 30 days with 11 refills. Partial fill upon patient request i... 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
--- OUTSIDE RECORDS SUMMARY | 2022-02-23 14:58 | XMS_ITS | Continuity of Care Document ---
:1965 Author Organization [facility] Address [address] [place] [id number]- Care Team Providers Name Role Phone Chandra Barry MD Primary Care Physician [place] [facility] [place]21 - 03/30/21 [facility] [address] [address] Attending Physician: Chago Pandya Admitting Physician: [id number] Referring Physician: [id number] Allergies, Adverse Reactions, Alerts Substance Reaction Severity Status Zocor unknown Active Lipitor elevared lft's Active Adhesive Bandage kin peels and itchiness Active paper tape works well Latex skin irritation, itchiness Activ e Other Environmental Allergy TB testing material- [facility] Active size and itchy statins muscle stiffness, potential liver issues Active oxyCODONE Itchy Active Immunizations Given and Recorded Vaccine Date Status Refusal Reason influenza virus vaccine, inactivated1 03/26/06 Given tetanus-diphtheria toxoids (Td) 04/23/02 Given 1Admin Note: ACUTE COORDINATOR: SANOFI PASTEUR VIS GIVEN, NO EGG ALLERGY Medications amlodipine 5 mg oral tablet 1 tablet = 5 mg, By Mouth, Daily, 0 Refills, Maintenance, 10/14/14 13:34:07 Start Date: 10/14/14 Status: OrderedDiflucan 150 mg oral tablet 1 tablet = 150 mg, By Mouth, Once, # 1 tablet, 0 Refills, Soft Stop, 01/20/20 16:35:00 EDT, Tablet, [facility] #[id number], 156, cm, 01/11/20 15:14:00 EDT, Height, 64.6, kg, 01/11/20 15:14:00 EDT,Dry Weight Start Date: 01/20/20 Status: Orderedexemestane 25 mg oral tablet 1 tablet, By Mouth, Daily, # 90 tablet, 0 Refills, Maintenance, 09/14/20 15:29:00 EDT, [facility] #[id number], 156, cm, 09/14/20 14:22:00 EDT, Height, 67.2, kg, 09/14/20 14:22:00 EDT, Dry Weight Start Date: 09/14/20 Status: Orderedexemestane 25 mg oral tablet See Instructions, TAKE 1 TABLET BY MOUTH DAILY, # 90 tablet, 3 Refills, 12/27/20 16:43:00 EDT, [facility] #[id number], 156, cm, 11/30/20 14:11:00 EDT, Height, 68.7, [...] Status Health Status Informant Anxiety disorder(Confirmed) Active 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
--- OUTSIDE RECORDS SUMMARY | 2022-02-23 14:58 | XMS_ITS | Continuity of Care Document ---
:1965 Author Organization [facility] Address [address] [place] [place] [address]- Care Team Providers Name Role Phone Chandra Barry MD Primary Care Physician Encounter [facility] Date(s): 04/10/20 - 05/10/20 [facility] [address] [place] [address]- Allergies, Adverse Reactions, Alerts Substance Reaction Severity [...] tetanus-diphtheria toxoids (Td) 04/23/02 Given 1Admin Note: EVIDENCE CUSTODIAN: SANOFI PASTEUR VIS GIVEN, NO EGG ALLERGY [...] Refills, Soft Stop, 01/20/20 16:35:00 EDT, Tablet, [facility] #[id number], 156, cm, 01/11/20 15:14:00 EDT, Height, 64.6, kg, 01/11/20 15:14:00 EDT,Dry Weight Start Date: 01/20/20 Status: Orderedletrozole 2.5 mg oral tablet 1 tablet = 2.5 mg, By Mouth, Daily, # 90 tablet, 0 Refills, Maintenance, 03/03/20 12:35:00 EST, Tablet, [facility] #[id number], 156, cm, 01/11/20 15:14:00 EDT, Height, 64.6, [...] 0 Refills, Maintenance, 03/20/20 17:10:00 EST, Tablet, [facility] #[id number], 156, cm, 03/20/20 16:47:00 EST, Height, 65.6, kg, 03/20/20 16:47:00 EST, Dry Weight Start Date: 03/20/20 Status: OrderedMobic 7.5 mg oral tablet 1 tablet = 7.5 mg, By Mouth, 2 times a day, # 60 tablet, 0 Refills, Maintenance, 04/14/20 10:56:00 EST, Tablet, [facility] #[id number], Partial fill upon patient request if the [...] Health Status Informant Anxiety disorder(Confirmed) Active 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
--- OUTSIDE RECORDS SUMMARY | 2022-02-23 14:58 | XMS_ITS | Continuity of Care Document ---
:1965 Author Organization [facility] [place] Address [address] [facility] [place] [address]- Care Team Providers Name Role Phone Chandra Barry MD Primary Care Physician Encounter 07/06/19 - 07/13/19 [facility] [address], [address] [place] [address]- [facility] Attending Physician: Chandra Barry MD Admitting Physician: Chandra Barry MD Referring Physician: Chandra Barry MD Allergies, Adverse Reactions, Alerts Substance Reaction Severity Status Zocor Active Lipitor elevared lft's Active Adhesive Bandage Active Percocet 5/325 Itchy Active oxyCODONE Itchy Active Immunizations Given and Recorded Vaccine Date Status Refusal Reason influenza virus vaccine, inactivated1 03/26/06 Given tetanus-diphtheria toxoids (Td) 04/23/02 Given 1Admin Note: ESCROW ASSISTANT: SANOFI PASTEUR VIS GIVEN, NO EGG ALLERGY [...] Status Health Status Informant Anxiety disorder(Confirmed) Active 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
--- OUTSIDE RECORDS SUMMARY | 2022-02-23 14:58 | XMS_ITS | Continuity of Care Document ---
:1965 Author Organization [facility] Address [address] [place] [id number]- Care Team Providers Name Role Phone Chandra Barry MD Primary Care Physician Encounter [facility] [place] Date(s): 05/31/20 - 09/13/20 [facility] [address] [address]- Discharge Disposition: A-D/C Home Attending Physician: Rosa Wilkinson MD Admitting Physician: Rosa Wilkinson MD Referring Physician: Chandra Barry MD Allergies, [...] tetanus-diphtheria toxoids (Td) 04/23/02 Given 1Admin Note: ELECTRICAL HELPER: SANOFI PASTEUR VIS GIVEN, NO EGG ALLERGY [...] Refills, Soft Stop, 01/20/20 16:35:00 EDT, Tablet, [facility] #[id number], 156, cm, 01/11/20 15:14:00 EDT, Height, 64.6, [...] 0 Refills, Maintenance, 03/20/20 17:10:00 EST, Tablet, [facility] #[id number], 156, cm, 03/20/20 16:47:00 EST, Height, 65.6, kg, 03/20/20 16:47:00 EST, Dry Weight Start Date: 03/20/20 Status: OrderedMobic 7.5 mg oral tablet 1 tablet = 7.5 mg, By Mouth, 2 times a day, # 60 tablet, 0 Refills, Maintenance, 04/14/20 10:56:00 EST, Tablet, [facility] #[id number], Partial fill upon patient request if the [...] 5 Refills, Maintenance, 08/11/20 16:38:00 EDT, Tablet, [facility] #[id number], Partial fill upon patient request if the [...] Status Health Status Informant Anxiety disorder(Confirmed) Active 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 Hypercholesterolemia(Confirmed) Active PMS - Premenstrual syndrome(Confirmed) Active Smoker(Confirmed) Active Vital Signs Most recent to oldest [Reference Range]: 1 Height 156 cm (06/01/20 2:55 PM) Weight 65.0 kg (06/01/20 2:55 PM) Pulse Rate [55-90 bpm] 86 bpm (06/01/20 2:55 PM) Body Mass Index [18.5-24.99] 26.71 *H* (06/01/20 2:55 PM) Blood Pressure [90-138/55-84 mm Hg] 134/79 mm Hg (06/01/20 2:55 PM) Temperature [96.8-100.4 DegF] 98.6 DegF (06/01/20 2:55 PM) Blood pressure sites Arm, right (06/01/20 2:55 PM) Temperature Route Temporal (06/01/20 2:55 PM) Dry Weight 65.0 kg (06/01/20 2:55 PM) Weight Obtained Via Standing scale (06/01/20 2:55 PM) Dry Weight Obtained Via Standing scale (06/01/20 2:55 PM) Social History Social History Type Response Smoking Status Current every day smoker entered on: 10/25/14 Sex
--- NOTE | 2022-02-23 15:13 | ED_ITS ---
HPI - Extremity Problem General Chief complaint: Extremity Problem Stated complaint: L SIDE ARM PAIN AND NECK PAIN Time Seen by Provider: 02/23/22 14:37 Source: patient Mode of arrival: ambulatory Limitations: no limitations History of Present Illness HPI Narrative: This is a 56-year-old female who has a past medical history of cervical fusion as well as left shoulder surgery who presents with 1 week of left-sided neck pain with radiation down the left arm with some associated numbness and tingling. Patient denies any injury or trauma. She does often carry her heavy bags and persist on the left side. She is taking Motrin with continued pain Related Data Previous Rx's Medication Instructions Recorded diazepam 5 mg tablet (Valium) 5 mg PO BID PRN muscle spasm #14 02/23/22 tabs ibuprofen 600 mg tablet 600 mg PO Q6H PRN pain #30 tabs 02/23/22 prednisone 20 mg tablet 40 mg PO DAILY #10 tabs 02/23/22 Allergies Allergy/AdvReac Type Severity Reaction Status Date / Time oxycodone [OXYCODONE] Allergy Severe ITCHING, Unverified 01/13/20 16:38 DIFFICULTY BREATHING Review of Systems Review of Systems: Yes all other systems are reviewed and are negative Constitutional: Constitutional: Reports no additional constitutional complaints, Denies body ache(s), Denies chills, Denies fever(s), Denies headache(s) and Denies weakness Eyes: Eyes: Reports no additional eye complaints and Denies change in vision ENT: Reports system reviewed and no additional complaints, except as doc umented, Denies dizziness, Denies headache(s), Denies nasal congestion, Denies nasal discharge and Reports neck pain Cardiovascular: Cardiovascular: Reports no additional cardiovascular complaints, Denies chest pain, Denies leg edema and Denies dyspnea Respiratory: Respiratory: Reports no additional respiratory complaints, Denies cough and Denies dyspnea Gastrointestinal: Gastrointestinal: Reports no additional gastrointestinal complaints, Denies abdominal pain, Denies diarrhea, Denies nausea and Denies vomiting Genitourinary: Genitourinary: Reports no additional female genitourinary complaints and Denies urinary incontinence Musculoskeletal: Musculoskeletal: Reports no additional musculoskeletal complaints, Denies back pain, Denies arthralgias, Denies joint swelling, Reports neck pain, Reports numbness, Reports radiating pain into limb and Reports tingling Integumentary/Breasts: Skin/Breast: Reports system reviewed and no additional complaints, except as docu and Denies rash Neurologic: Reports system reviewed and no additional complaints, except as documented, Denies Abnormal speech present, Denies dizziness, Denies headache(s), Reports numbness, Reports tingling and Denies weakness PMFSH Past Medical History Attestation statement: The following information was validated with the patient. Source: old records reviewed and nursing notes reviewed Social History Social History Alcohol intake: never Patient Tobacco Use Status: Current someday Tobacco user Use of substances other than those prescribed or required for medical reasons: Yes Substance Use Type: Marijuana Advance Directives: No Advance Directives Information Provided: No Physical Exam Vital Signs: Vital Signs: Last Vital Signs Temp 97.9 F 02/23/22 13:56 Pulse 61 02/23/22 16:35 Resp 18 02/23/22 16:35 BP 145/75 H 02/23/22 16:35 Pulse Ox 97 02/23/22 16:35 O2 Del Method 02/23/22 16:35 BMI result Body Mass Index 27.8 Const: Other: +in pain General: cooperative and healthy appearing Orientation/consciousness: patient oriented x3 Limitations: no limitations HEENT: Head: Yes normal to inspection Ears: hearing grossly normal bilaterally General nose exam: Normal external nose present Face and sinus: Yes normal facial exam Mouth: Normal oral and palatal mucosa present Throat: Yes posterior oropharynx normal Eyes: General: appearance normal, both eyes and all related structures Pupils: Equal, round and reactive pupils present Neck: Other: Some cervical midline tenderness with no step-offs deformities. There is also tenderness over the cervical soft tissue on the left side and over the trapezius muscles. On compression there is pain which radiates down the left arm. +cervical compression test Neck: Yes normal visual inspection Chest: Chest palpation & inspection: normal inspection of the chest Resp: Effort & Inspection: normal respiratory effort Auscultation: clear to auscultation bilaterally Cardio: Rate: regular rate Rhythm: regular rhythm Peripheral pulses: Peripheral pulses 2+ throughout GI: Inspection: Yes normal to inspection Palpation (GI): Soft to palpation and nontender Auscultation: normal bowel sounds Back/Spine/Pelvis: Thoracic/Lumbar Spine: thoracic and lumbar spine normal to inspection Skin: General skin exam: no rashes or lesions noted Neuro: Other: Upper extremities with 5/5 strength. Normal sensation. Normal reflexes. General: patient oriented x3, moves all extremities, no focal motor deficits and normal sensation to monofilament Cranial nerves: Yes CN's II-XII intact bilaterally, Yes Equal, round and reactive pupils present, Yes Bilaterally intact EOM present, Yes Nystagmus not present, Yes Normal facial strength present and Yes Midline tongue present Cognition (Neuro): normal cognition Speech: No Abnormal speech present Gait exam (Neuro): Normal gait present Motor exam (neuro): 5/5 motor strength present throughout Sensory Exam: Normal double simultaneous stimulation for sensation Deep tendon reflexes (DTR's): Rt Biceps (C5, C6): 2+, Left biceps reflex intensity grade: 2+, Right brachioradialis reflex intensity grade: 2+ and Left brachioradialis reflex intensity grade: 2+ Extrem: General: Yes normal to inspection Course Course Course Narrative: CT shows FINDINGS: Status post anterior fusion C4-C5, C5-C6. Hardware intact. No fracture. No subluxation. No bone destruction. There is degenerative spondylosis of cervical spine. Mild disc height narrowing with anterior endplate spurs at C3-C4. Moderate to marked disc height narrowing and gentle endplate spurring at C6-C7. No foramina are open bilaterally. The facet joints are normal. No evidence of central canal stenosis or focal disc protrusion. CT/CT cervical spine wo IV con IMPRESSION: 1.? No acute abnormality. 2.? Status post anterior fusion C4-C6. 3.? Degenerative spondylosis of cervical spine. Patient reports improvement of symptoms although not complete resolution. Overall feeling improved. Will discharge home with NSAID, prednisone course and muscle relaxant. Reviewed worrisome signs and symptoms of when to return to the emergency room. Comfortable plan for discharge home. MDM - Extremity (Nontraumatic) MDM Narrative Medical decision making narrative: This 56-year-old female with history of cervical fusion about 4 years ago through [facility] and left shoulder surgery now with 1 week of neck pain with radiation down the left arm with some numbness and tingling of the extremity. No neurological deficits. Patient is exquisitely tender. Patient will receive Toradol and Valium. Will need CT cervical spine -low concern for cord compression or normal neurological exam. No appreciable weakness, numbness or tingling of the extremities. Low concern for epidural abscess with no history of IV drug abuse, immunocompromised state Medical Records Attestation: I reviewed the patient's medical records. Lab Data Attestation: I reviewed the patient's lab results. Imaging Data Ct cervical spine: Attestation: I personally reviewed and interpreted this imaging study as follows: Radiologist's impression: DLP: 454 mGy-cm FINDINGS: Status post anterior fusion C4-C5, C5-C6. Hardware intact. No fracture. No subluxation. No bone destruction. There is degenerative spondylosis of cervical spine. Mild disc height narrowing with anterior endplate spurs at C3-C4. Moderate to marked disc height narrowing and gentle endplate spurring at C6-C7. No foramina are open bilaterally. The facet joints are normal. No evidence of central canal stenosis or focal disc protrusion. CT/CT cervical spine wo IV con IMPRESSION: 1.? No acute abnormality. 2.? Status post anterior fusion C4-C6. 3.? Degenerative spondylosis of cervical spine. ? Fleischner guidelines were followed. Discharge Plan Discharge Clinical Impression: Cervical radiculopathy Patient Disposition: Home, Self-Care Instructions: Cervical Radiculopathy (ED) Additional Instructions: You were given a copy of your CT scan report Follow-up with your primary care doctor for any persistent symptoms or you may call [facility] for an appointment Apply heat to the neck and shoulder Gentle stretching Prescriptions: New diazepam [Valium] 5 mg tablet 5 mg PO BID PRN (Reason: muscle spasm) Qty: 14 0RF ibuprofen 600 mg tablet 600 mg PO Q6H PRN (Reason: pain) Qty: 30 0RF prednisone 20 mg tablet 40 mg PO DAILY Qty: 10 0RF
[2022-02-23 15:14] VITALS: BP 179/81; PULSE 72; RESP 20; O2SAT 98
[2022-02-23] MEDS: diazePAM 2 MG TABLET PO ×2 (15:25→16:37)
[2022-02-23] MEDS: Ketorolac Tromethamine 60 MG/2 ML VIAL IM (15:25)
[2022-02-23 16:35] VITALS: BP 145/75; PULSE 61; RESP 18; O2SAT 97
== END 2022-02-23 18:07 | disposition home or self-care (01) ==
PROVIDERS: Emergency Provider Emergency Medicine; PCP Internal Medicine
DX: M54.12 Radiculopathy, cervical region (principal); M54.2 Cervicalgia; Z79.899 Other long term (current) drug therapy
CPT/HCPCS: 72125; 96372; 99284; J1885